=== PATIENT | male | born 1970 | race Caucasian/White ===

== ENCOUNTER 2023-01-18 10:10 | Inpatient (IN) | payer MEDICAID ==
[~2023-01-18] VITALS: Ht 167.6 cm; Wt 70.3 kg
[2023-01-18] MEDS ORDERED: IV NS 0.9% 1,000 ML BAG IV ONE (10:30)
[2023-01-18 10:51] LABS: BASOPHILS % (AUTO) 0.3 % (0.0-2.0); HEMATOCRIT 24 % (39-51); HEMOGLOBIN 7.5 g/dL (13.5-17.5); LYMPHOCYTES # (AUTO) 0.1 K/uL (0.8-4.8); LYMPHOCYTES % (AUTO) 1.2 % (20.0-44.0); MEAN CORPUSCULAR HGB CONC 32 g/dl (31.0-36.0); MEAN CORPUSCULAR VOLUME 91 fL (80-96); MONOCYTES # (AUTO) 0.2 K/uL (0.1-1.30); MONOCYTES % (AUTO) 2.7 % (2.0-12.0); NEUTROPHILS # (AUTO) 7.7 K/uL (1.8-8.9); NEUTROPHILS % (AUTO) 95.8 % (43.0-81.0); PLATELET COUNT (AUTO) 153 K/uL (150-450)
--- NOTE | 2023-01-18 10:53 | NUR ---
BIBA FOUND ON THE FLOOR BY FAMILY WITHOUT CLOTHES , ALTERED . +HISTORY OF ALCOHOLIM PER FAMILY
--- NOTE | 2023-01-18 10:54 | NUR ---
LAB AT BEDSIDE
[2023-01-18] MEDS ORDERED: LORAZEPAM INJ 2 MG/ML VIAL ONE (10:58)
[2023-01-18] MEDS ORDERED: LORAZEPAM INJ 2 MG/ML VIAL IV ONE (11:00)
[2023-01-18 11:01] LABS: CALCIUM, SERUM 8.8 mg/dL (8.5-10.1); CARBON DIOXIDE 21 mmol/L (21-32); CHLORIDE 90 mmol/L (98-107); CREATININE 1.2 mg/dL (0.6-1.3); GLUCOSE 96 mg/dL (74-106); POTASSIUM 3.8 mmol/L (3.5-5.1); SODIUM SERUM 126 mmol/L (136-145); UREA NITROGEN, BLOOD 31 mg/dL (7-18)
[2023-01-18 11:08] LABS: ALANINE AMINOTRANSFERASE 36 U/L (12-78); ALBUMIN 3.4 g/dL (3.4-5.0); ALKALINE PHOSPHATASE 132 U/L (46-116); ASPARTATE AMINOTRANSFERASE 101 U/L (15-37); BILIRUBIN,DIRECT 0.3 mg/dL (0.0-0.2); BILIRUBIN,TOTAL 0.9 mg/dL (0.2-1.0); TOTAL PROTEIN, SERUM 7.1 g/dL (6.4-8.2)
[2023-01-18 11:11] LABS: ALCOHOL, BLOOD < 3 mg/dL (0-0); LIPASE 1747 U/L (73-393)
[2023-01-18 11:15] LABS: THYROID STIMULATING HORMONE 1.291 uIU/mL (0.358-3.74)
--- NOTE | 2023-01-18 11:42 | NUR ---
TAKEN TO CT
[2023-01-18 11:49] LABS: MAGNESIUM 2.8 mg/dL (1.8-2.4)
--- NOTE | 2023-01-18 11:53 | NUR ---
SWAB FOR COVID19 SENT TO LAB
--- NOTE | 2023-01-18 16:13 | NUR ---
GOT BED 324-1 ADMITTING INFORMED CASSIUS GALLARDO.
[2023-01-18] MEDS ORDERED: MAGNESIUM HYDROXIDE 30 ML UDC PO PRN (16:30)
[2023-01-18] MEDS ORDERED: IV NS 0.9% 1,000 ML IV PRN (16:30)
[2023-01-18] MEDS ORDERED: ACETAMINOPHEN 325 MG TABLET PO PRN (16:30)
[2023-01-18] MEDS ORDERED: Z GUARD REMEDY 4 OZ OINT TP PRN (16:30)
[2023-01-18] MEDS ORDERED: MAG HYDROX/AL HYDROX/SIMETH 30 ML UDC PO PRN (16:30)
[2023-01-18] MEDS ORDERED: ZOLPIDEM TARTRATE 5 MG TABLET PO PRN (16:30)
[2023-01-18] MEDS ORDERED: ONDANSETRON HCL/PF 4 MG/2 ML VIAL IVP PRN (16:30)
--- NOTE | 2023-01-18 16:56 | NUR ---
REPORT GIVEN TO GREG HAMMONDS ROOM 324-1 FOR JOSE
[2023-01-18] MEDS: CHLORDIAZEPOXIDE HCL 25 MG CAPSULE PO SCH (17:00)
--- NOTE | 2023-01-18 17:15 | NUR ---
MS ASSOCIATE PROFESSOR OF BIOSTATISTICS NOTES: PT RECEIVED REPORT FROM CASSIUS MEYERS VIA PHONE. PT ARRIVED AT UNIT VIA GURNEY, TRANSFERRED TO BED WITH 2 PERSON ASSIST, UNABLE TO AMBULATE. VITAL WNL, BP= 146/102, HR = 62, O2= 99% ON RA. PT IS ASLEEP, EASILY ROUSED, A/OX1, ALERT TO NAME ONLY. ORIENTED PT TO ROOM AND STAFF. PT PLACED ON TELE MONITOR, CURRENT READING SR, HR= 63. IV ACCESS AT L HAND #18, PATENT/INTACT. BODY CHECK DONE, SKIN ISSUES NOTED AT R THIGH, L KNEE AND BOTH FEET/TOES, DOCUMENTED, PHOTOS TAKEN, ATTACHED TO CHART, WOUND CONSULT PLACED. ALERTED ADMITTING FLIGHT CONTROL MANAGER ABOUT R THIGH SWELLING, XRAY AND VENOUS DOPPLER ORDERED. SAFETY MEASURES IN PLACE, CALL LIGHT, TABLE WITHIN EASY REACH. WILL CONT WITH PLAN OF CARE. Addendum: 01/18/23 at 1940 by KAREN MORRIS RN DIRECTOR EPIDEMIOLOGYASSOCIATE PROFESSOR OF BIOSTATISTICS NOTES
--- NOTE | 2023-01-18 18:30 | NUR ---
RN NOTES; LIBRIUM NON ADMIN, PT IS NPO, PT IS REFUSING TO OPEN MOUTH, MADE MD AWARE TO POSSIBLY CHANGE TO ANOTHER MEDICATION TO IV ROUTE
[2023-01-18] MEDS: Thiamine 100 MG in IV D5W 50 ML IV SCH (19:22)
--- NOTE | 2023-01-18 19:37 | NUR ---
SAFETY INVESTIGATOR CLOSING NOTES: PT IS ASLEEP, EASILY ROUSED, A/OX1, ALERT TO NAME ONLY. ON RA WITH NO S/S OF SOB AND ACUTE DISTRESS. PT ON TELE MONITOR, CURRENT READING SR, HR= 63. IV ACCESS AT L HAND #18, RUNNING NS @ 150ML/HR. KEPT PT CLEAN, DRY AND COMFORTABLE, MEDS GIVEN. SAFETY MEASURES IN PLACE, CALL LIGHT, TABLE WITHIN EASY REACH, ENDORSED TO PM SHIFT.
--- NOTE | 2023-01-18 19:38 | NUR ---
IT SOLUTIONS ARCHITECT OPENING NOTES - RECEIVED PATIENT IN BED. A/O X1, CONFUSED. BREATHING EVEN AND NON-LABORED ON ROOM AIR. WHOLE BODY IS SHAKING, COLD TO TOUCH. DENIES PAIN AT THIS TIME. ON TELE MONITOR READING SINUS RHYTHM AT 69 BPM. HAS LEFT WRIST IV ACCESS #18G WITH NS RUNNING AT 150 ML/HR. NO S/S OF INFILTRATION NOTED. SAFETY PRECAUTIONS IN PLACE: BED LOCKED AND IN LOW POSITION, SIDE RAILS UP X3, CALL LIGHT WITHIN REACH. WILL CONTINUE PLAN OF CARE.
[2023-01-18 20:06] VITALS: BP 118/77
[2023-01-18] MEDS: LORAZEPAM INJ 2 MG/ML VIAL IV PRN (21:12)
--- NOTE | 2023-01-18 21:19 | NUR ---
ADMINISTERED PRN ATIVAN 0.5MG D/T WITHDRAWAL SYMPTOMS. WILL CONTINUE TO MONITOR.
[2023-01-19] VITALS (11 sets, daily range): BP systolic 94–147; BP diastolic 43–111
--- NOTE | 2023-01-19 00:17 | NUR ---
RN NOTES- START BT PATIENT STARTED 2ND BAG OF PRBC. V/S TAKEN AND RECORDED. BLOOD COMPONENTS CHECKED AND VERIFIED. WILL CONTINUE TO MONITOR PATIENT.
[2023-01-19] MEDS ORDERED: DEXTROSE 50%-WATER 50 ML DISP.SYRIN ONE (00:27)
--- NOTE | 2023-01-19 00:32 | NUR ---
CASSIUS NOTES- BT PATIENT HAS NO ADVERSE OR ALLERGIC REACTION 15 MINUTES AFTER STARTING BT. V/S STABLE, TAKEN AND RECORDED. WILL CONTINUE TO MONITOR PATIENT. Addendum: 01/20/23 at 0615 by VIVIENNE CHU RN DATE IS 01/20/23
--- NOTE | 2023-01-19 00:47 | NUR ---
CASSIUS NOTES- BT PATIENT HAS NO ADVERSE OR ALLERGIC REACTION 15 MINUTES AFTER STARTING BT. V/S STABLE, TAKEN AND RECORDED. Addendum: 01/20/23 at 0615 by VIVIENNE CHU RN DATE IS 01/20/23
--- NOTE | 2023-01-19 01:06 | NUR ---
BS 49 AND 55. ADMINISTERED D50, NOTIFIED HOSPITALIST SAÚL JENSEN, AWAITING RESPONSE. RECHECKED BS 165. PATIENT ASLEEP, LESS TREMORS NOTED. Addendum: 01/19/23 at 0158 by April CLARISSE HAMMONDS MD ORDERED CHANGE IVF TO D5NS AND MARZENA WEINER FOR HYPOTHERMIA. NOTED AND CARRIED OUT.
--- NOTE | 2023-01-19 01:17 | NUR ---
CASSIUS NOTES- BT PATIENT HAS NO ADVERSE OR ALLERGIC REACTION 30 MINUTES AFTER STARTING BT. V/S STABLE, TAKEN AND RECORDED. WILL CONTINUE TO MONITOR PATIENT. Addendum: 01/20/23 at 0615 by VIVIENNE CHU RN DATE IS 01/20/23
[2023-01-19] MEDS ORDERED: DEXTROSE 50%-WATER 50 ML DISP.SYRIN IVP ONE (02:00)
--- NOTE | 2023-01-19 02:17 | NUR ---
CASSIUS NOTES- BT PATIENT HAS NO ADVERSE OR ALLERGIC REACTION 1 HOUR AFTER STARTING BT. V/S STABLE, TAKEN AND RECORDED. Addendum: 01/20/23 at 0615 by VIVIENNE CHU RN DATE IS 01/20/23
[2023-01-19] MEDS: IV D5/ 0.9% NACL 1,000 ML IV PRN ×2 (02:26→10:35)
[2023-01-19] MEDS: LORAZEPAM INJ 2 MG/ML VIAL IV PRN (03:40)
--- NOTE | 2023-01-19 03:40 | NUR ---
EKG ORDERED BUT PATIENT STILL HAS GENERALIZED TREMOR. ADMINISTERED PRN ATIVAN 1MG AND NOTIFIED RT. Addendum: 01/19/23 at 0420 by April CLARISSE RN PER RT, PATIENT IS UNCOOPERATIVE AND KEPT TRYING TO REMOVE THE LEADS. ALSO, PATIENT STILL HAS TREMORS. UNABLE TO TAKE EKG AT THIS TIME.
--- NOTE | 2023-01-19 04:30 | NUR ---
THIAMINE 100 MG IN IV D5W 50 ML WAS HELD DUE TO PRIORITIZING BLOOD TRANSFUSION. PHARMACY WAS CONSULTED. PER PHARMACY, IT SHOULD BE GIVEN AFTER ALL BLOOD TRANSFUSIONS ARE DONE.
--- NOTE | 2023-01-19 04:31 | NUR ---
RT NOTE UNABLE TO PERFORM EKG. PATIENT NOT COOPERATING AND VERY SHAKY. RN MARGUERITE AWARE.
[2023-01-19 06:08] LABS: ALBUMIN 2.7 g/dL (3.4-5.0); BILIRUBIN,TOTAL 0.8 mg/dL (0.2-1.0); CALCIUM, SERUM 7.4 mg/dL (8.5-10.1); CREATININE 0.9 mg/dL (0.6-1.3); PHOSPHORUS 4.8 mg/dL (2.5-4.9); POTASSIUM 4.9 mmol/L (3.5-5.1); TOTAL PROTEIN, SERUM 5.7 g/dL (6.4-8.2)
--- NOTE | 2023-01-19 06:48 | NUR ---
LVN LPN CLOSING NOTES - PATIENT SLEEPING, EASY TO AROUSE. STILL NOT RESPONDING TO QUESTIONS. NO SOB OR NOTED, TOLERATING ROOM AIR WELL. GENERALIZED TREMORS NOTED. AFEBRILE. ON TELE MONITOR READING SINUS RHYTHM AT 99 BPM. HAS LEFT WRIST IV ACCESS #18G WITH D5NS RUNNING AT 150 ML/HR. INTACT, PATENT AND FLUSHING. ALL DUE MEDS GIVEN AND NEEDS ATTENDED. KEPT ON NPO. SAFETY PRECAUTIONS MAINTAINED. WILL ENDORSE TO NEXT SHIFT FOR JOSE.
--- NOTE | 2023-01-19 07:20 | NUR ---
CHEST PAINTING LEADER OPENING NOTES PATIENT SLEEPING, EASY TO AROUSE. YI SPEAKING, SECTION WEAVER TIMBER TREATMENT PLANT OPERATOR, A/OX1, CONFUSED, GENERALLY NOT RESPONDING TO QUESTIONS. NO SOB OR DISTRESS NOTED, TOLERATING ROOM AIR WELL. WITH GENERALIZED TREMORS NOTED. AFEBRILE. ON TELE MONITOR READING SINUS RHYTHM AT 99 BPM. HAS LEFT WRIST IV ACCESS #18G WITH D5NS RUNNING AT 150 ML/HR. INTACT, PATENT AND FLUSHING. PATIENT KEPT ON NPO. SAFETY PRECAUTIONS MAINTAINED. WILL CONTINUE TO MONITOR THE PATIENT.
[2023-01-19] MEDS ORDERED: PANTOPRAZOLE 40 MG VIAL IV SCH (09:00)
[2023-01-19] MEDS: CHLORDIAZEPOXIDE HCL 25 MG CAPSULE PO SCH ×2 (09:06→16:47)
[2023-01-19 09:12] LABS: BASOPHILS % (AUTO) 0.1 % (0.0-2.0); LYMPHOCYTES # (AUTO) 0.2 K/uL (0.8-4.8); MEAN CORPUSCULAR HGB CONC 32 g/dl (31.0-36.0); MEAN CORPUSCULAR VOLUME 90 fL (80-96); MONOCYTES # (AUTO) 0.3 K/uL (0.1-1.30); MONOCYTES % (AUTO) 6.4 % (2.0-12.0); NEUTROPHILS # (AUTO) 4.8 K/uL (1.8-8.9); NEUTROPHILS % (AUTO) 90.5 % (43.0-81.0); PLATELET COUNT (AUTO) 100 K/uL (150-450); RED BLOOD CELL COUNT(AUTO) 2.12 MIL/uL (4.5-6.0); WHITE BLOOD COUNT (AUTO) 5.4 K/uL (4.3-11.0)
[2023-01-19 09:17] LABS: HEMOGLOBIN 6.1 g/dL (13.5-17.5)
[2023-01-19 09:18] LABS: HEMATOCRIT 19 % (39-51)
--- NOTE | 2023-01-19 10:01 | NUR ---
WOUND CARE CONSULT: PT PRESENTS WITH SOME DRY ABRASIONS TO LOWER EXTREMITIES AND RED, SWOLLEN AREA TO RT HIP/THIGH PRESENT ON ADMISSION. DEFER TO PMD FOR RT HIP/THIGH AREA. DISCUSSED SKIN PROTECTION WITH NURSING STAFF. MD IN AGREEMENT WITH PLAN OF CARE.
--- NOTE | 2023-01-19 10:26 | NUR ---
SW Consult: SW consult requested for patient substance abuse. Patient was asleep and was not cooperative with this board writer. SW attempted to have a conversation with the pt and pt appeared to be disorganized and confused. Pt was unable to give any appropriate information. SW was unable to provide resources to pt or gather any historical information.
[2023-01-19] MEDS: HYDROMORPHONE 1 MG/1 ML DISP.SYRIN IV PRN (12:12)
--- NOTE | 2023-01-19 14:52 | NUR ---
A condom type chu was put in placed. No urine sample yet at this time
--- NOTE | 2023-01-19 17:28 | NUR ---
RN NOTES BLOOD TRANSFUSION OF PRBC STARTED AT 1727 AT 60 ML/HR VIA IV ACCESS ON LEFT WRIST 18G. PRE-BLOOD TRANSFUSION V/S TAKEN AND RECORDED. WILL MONITOR FOR ANY ALLERGIC OR ADVERSE REACTIONS.
--- NOTE | 2023-01-19 17:44 | NUR ---
RN NOTES NO ALLERGIC OR ADVERSE REACTIONS NOTED AFTER 15 MINUTES OF INITIATING BLOOD TRANSFUSION. V/S TAKEN AND RECORDED. WILL CONTINUE TO MONITOR.
--- NOTE | 2023-01-19 18:01 | NUR ---
RIGHT UPPER ARM IV GAUGE 20 WAS ESTABLISHED AN ALTERNATIVE IV ACCESS. PATIENT WAS CONFUSED AND TRIED TO PULL THE ONGOING BLOOD TRANSFUSION. SOFT RESTRAINT WAS ALSO TEMPORARILY PUT IN PLACED WHILE TRANSFUSING BLOOD.
[2023-01-19 18:26] LABS: HEMOGLOBIN 6.3 g/dL (13.5-17.5)
--- NOTE | 2023-01-19 19:24 | NUR ---
ASSOCIATE ATTORNEY CLOSING NOTES - PATIENT SLEEPING, EASY TO AROUSE. STILL NOT RESPONDING TO QUESTIONS. PATIENT'S RELATIVES IN THE ROOM TRANSLATING DUE TO PATIENT SPEAK ONLY GABONESE. NO SOB OR NOTED, TOLERATING ROOM AIR WELL. GENERALIZED TREMORS NOTED. AFEBRILE. ON TELE MONITOR READING SINUS RHYTHM AT 97 BPM. HAS LEFT WRIST IV ACCESS #18G WITH D5NS PUT ON HOLD AND TO RESUME AFTER BLOOD TRANSFUSION IS DONE AT 150 ML/HR. INTACT, PATENT AND FLUSHING. 2 UNITS OF PRBC WAS ORDERED. ONE BAG IS CURRENTLY TRANSFUSING. FINAL BAG NEEDED TO BE PICKED UP (ENDORSED TO PM NURSE). ADDITIONAL IV ACCESS WAS ESTABLISHED NOTED EARLIER. ALL DUE MEDS GIVEN AND NEEDS ATTENDED. PATIENT KEPT ON NPO. SAFETY PRECAUTIONS MAINTAINED. WILL ENDORSE TO NEXT SHIFT FOR JOSE.
--- NOTE | 2023-01-19 19:35 | NUR ---
SET OFF PRESS OPERATOR OPENING NOTES RECEIVED PATIENT IN BED SLEEPING, CURRENTLY ON BT WITH 1 PRBC. NO ADVERSE REACTION OR ALLERGIC REACTION NOTED. ON 2L OXYGEN VIA NC, BREATHING EVEN AND UNLABORED. A/O X 1, CONFUSED. NO S/S OF PAIN NOTED AT THIS TIME. IV ACCESS L WRIST #18G, ON SALINE LOCK. PATIENT WITH EXTERNAL RELAY ASSEMBLER WITH CURRENT READING OF SR @ 99, NO CARDIAC DISTRESS NOTED. FALL AND SAFETY PRECAUSTINS GIVEN WITH BED ON LOWEST AND LOCK POSITION. BED ALARM ON. SIDE RAILS UP X 2. CALL LIGHT WITHIN REACH. WILL CONTINUE WITH THE PLAN OF CARE.
--- NOTE | 2023-01-19 21:07 | NUR ---
RN NOTES- BT DONE DONE WITH THE 1 PRBC. V/S STABLE, TAKEN AND RECORDED. NO ALLERGIC OR ADVERSE REACTION NOTED. WILL CONTINUE TO MONITOR PATIENT.
[2023-01-19] MEDS: Thiamine 100 MG in IV D5W 50 ML IV SCH (21:26)
[2023-01-19] MEDS: PANTOPRAZOLE 40 MG VIAL IV SCH (21:29)
[2023-01-19] MEDS: CEFAZOLIN 1 GM in IV D5W 50 ML IV SCH (21:50)
[2023-01-20] VITALS (10 sets, daily range): BP systolic 98–145; BP diastolic 50–85
[2023-01-20 00:19] LABS: BAND % (MANUAL) 3 % (0.0-5.0); BASOPHILS % (MANUAL) 0 % (0.0-2.0); EOSINOPHILS % (MANUAL) 0 % (0-4); LYMPHOCYTES % (MANUAL) 4 % (16-48); MONOCYTES % (MANUAL) 7 % (0-11.0); NEUTROPHILS % (MANUAL) 86 (42-76)
--- NOTE | 2023-01-20 03:24 | NUR ---
RN NOTES- BT DONE DONE WITH 2ND BAG OF 1 PRBC. V/S STABLE, TAKEN AND RECORDED. NO ALLERGIC OR ADVERSE REACTION NOTED. WILL CONTINUE TO MONITOR PATIENT.
[2023-01-20] MEDS: LORAZEPAM INJ 2 MG/ML VIAL IV PRN (04:27)
--- NOTE | 2023-01-20 04:27 | NUR ---
RN NOTES- ATIVAN PATIENT GIVEN ATIVAN 1MG PRN. PATIENT IS RESTLESS AND TRYING TO PULL OUT TUBES AND IV LINES. WILL CONTINUE TO MONITOR PATIENT.
[2023-01-20] MEDS: CEFAZOLIN 1 GM in IV D5W 50 ML IV SCH ×3 (05:27→20:43)
[2023-01-20] MEDS: IV D5/ 0.9% NACL 1,000 ML IV PRN ×3 (05:34→21:36)
[2023-01-20 06:33] LABS: BASOPHILS % (AUTO) 0.1 % (0.0-2.0); EOSINOPHILS % (AUTO) 0.4 % (0.0-6.0); HEMATOCRIT 25 % (39-51); HEMOGLOBIN 8.5 g/dL (13.5-17.5); LYMPHOCYTES # (AUTO) 0.4 K/uL (0.8-4.8); LYMPHOCYTES % (AUTO) 5.2 % (20.0-44.0); MEAN CORPUSCULAR HGB CONC 33 g/dl (31.0-36.0); MEAN CORPUSCULAR VOLUME 88 fL (80-96); MONOCYTES # (AUTO) 0.5 K/uL (0.1-1.30); NEUTROPHILS # (AUTO) 6.7 K/uL (1.8-8.9); NEUTROPHILS % (AUTO) 88.3 % (43.0-81.0); PLATELET COUNT (AUTO) 82 K/uL (150-450); RED BLOOD CELL COUNT(AUTO) 2.89 MIL/uL (4.5-6.0); WHITE BLOOD COUNT (AUTO) 7.5 K/uL (4.3-11.0)
[2023-01-20 06:41] LABS: ALBUMIN 2.6 g/dL (3.4-5.0); BILIRUBIN,TOTAL 1.3 mg/dL (0.2-1.0); CALCIUM, SERUM 7.8 mg/dL (8.5-10.1); CREATININE 0.8 mg/dL (0.6-1.3)
--- NOTE | 2023-01-20 07:46 | NUR ---
MACHINE DRILLER CLOSING NOTES PATIENT IN BED SLEEPING WITH BILATERAL SOFT RESTRAINTS. A/O X 1, CONFUSED. ON 2L OXYGEN VIA NC FOR COMFORT, BREATHING EVEN AND UNLABORED. NO S/S OF PAIN NOTED AT THIS TIME. IV ACCESS RAC #18G RUNNING D5 NS @ 150ML/HR. FINISHED 2 PRBC, NO ADVERSE AND ALLERGIC REACTION NOTED. ON NPO, ALL DUE IV MEDICATIONS GIVEN. PATIENT WITH EXTERNAL PSYCHOLOGICAL SCIENCE PROFESSOR WITH CURRENT READING OF SR @ 90, NO CARDIAC DISTRESS NOTED. FALL AND SAFETY PRECAUTIONS MAINTAINED WITH BED ON LOWEST AND LOCK POSITION. BED ALARM ON. SIDE RAILS UP X 2. CALL LIGHT WITHIN REACH. WILL ENDORSE TO THE NEXT SHIFT.
--- NOTE | 2023-01-20 07:50 | NUR ---
RN OPENING NOTE RECEIVED PATIENT IN BED, ASLEEP, EASILY AROUSED. NO SIGNS OF ACUTE DISTRESS NOTED. ON O2 INHALATION @2LPM VIA N/C, NO SOB NOTED, BREATHING EVEN AND UNLABORED. NOTED WITH IV ACCESS ON RIGHT AC #20G, INTACT AND PATENT WITH D5NS @150 ML/HR RUNNING. ON TELE MONITOR SHOWING SR/ST. BILATERAL SOFT WRIST RESTRAINTS IN PLACE FOR SAFETY. F/C INTACT DRAINING CLEAR JO ANN URINE VIA GRAVITY. SAFETY MEASURE IN PLACE. BED IN LOW AND LOCKED POSITION, SIDE RAILS UP X2, CALL LIGHT PLACED WITHIN EASY REACH, WILL CONTINUE TO MONITOR PATIENT.
[2023-01-20] MEDS: CHLORDIAZEPOXIDE HCL 25 MG CAPSULE PO SCH ×2 (08:54→16:27)
[2023-01-20] MEDS: PANTOPRAZOLE 40 MG VIAL IV SCH ×2 (08:55→20:46)
[2023-01-20 12:10] LABS: BAND % (MANUAL) 6 % (0.0-5.0); BASOPHILS % (MANUAL) 0 % (0.0-2.0); EOSINOPHILS % (MANUAL) 2 % (0-4); LYMPHOCYTES % (MANUAL) 7 % (16-48); MONOCYTES % (MANUAL) 5 % (0-11.0); NEUTROPHILS % (MANUAL) 80 (42-76)
[2023-01-20] MEDS: THIAMINE HCL 100 MG TABLET PO SCH (12:17)
[2023-01-20] MEDS: HYDROMORPHONE 1 MG/1 ML DISP.SYRIN IV PRN (16:57)
[2023-01-20 17:15] LABS: HEMOGLOBIN 8.1 g/dL (13.5-17.5)
--- NOTE | 2023-01-20 18:48 | NUR ---
RN CLOSING NOTE PATIENT IN BED, ASLEEP, EASILY AROUSED. NO SIGNS OF ACUTE DISTRESS NOTED. REMAINS ON O2 INHALATION @2LPM VIA N/C, NO SOB NOTED, BREATHING EVEN AND UNLABORED. WITH IV ACCESS ON RIGHT AC #20G, INTACT AND PATENT WITH D5NS @150 ML/HR RUNNING. PATIENT DOWNGRADED TO MS. BILATERAL SOFT WRIST RESTRAINTS IN PLACE FOR SAFETY.STILL NOTED WITH EPISODES OF RESTLESSNESS, REDIRECTED NEEDED. F/C INTACT DRAINING CLEAR JO ANN URINE VIA GRAVITY. SAFETY MEASURE MAINTAINED. BED IN LOW AND LOCKED POSITION, SIDE RAILS UP X2, CALL LIGHT PLACED WITHIN EASY REACH. WILL ENDORSE TO NEXT SHIFT FOR CONTINUITY OF CARE.
--- NOTE | 2023-01-20 19:30 | NUR ---
MS RN OPENING NOTE RECEIVED PATIENT FROM AM NURSE; PATIENT IN BED, ASLEEP, EASILY AROUSED; ON O2 INHALATION @ 2LPM VIA NASAL CANNULA, NO SOB NOTED, BREATHING EVENLY AND UNLABORED, WITH NO SIGNS OF RESPIRATORY DISTRESS NOTED; WITH IV ACCESS ON RAC G #20, INTACT AND PATENT WITH D5NS INFUSING @ 150 ML/HR; BILATERAL SOFT WRIST RESTRAINTS IN PLACE FOR SAFETY; WITH GUZMAN CATHETER IN PLACE, INTACT DRAINING CLEAR JO ANN URINE VIA GRAVITY; SAFETY MEASURES IMPLEMENTED, BED IN LOW AND LOCKED POSITION, SIDE RAILS UP X2, CALL LIGHT PLACED WITHIN EASY REACH, WILL CONTINUE TO MONITOR PATIENT
[2023-01-21] MEDS: CEFAZOLIN 1 GM in IV D5W 50 ML IV SCH ×3 (04:43→20:08)
[2023-01-21] MEDS: IV D5/ 0.9% NACL 1,000 ML IV PRN ×3 (04:44→20:08)
[2023-01-21 06:36] LABS: BASOPHILS % (AUTO) 0.3 % (0.0-2.0); EOSINOPHILS % (AUTO) 0.4 % (0.0-6.0); HEMATOCRIT 24 % (39-51); LYMPHOCYTES # (AUTO) 0.4 K/uL (0.8-4.8); LYMPHOCYTES % (AUTO) 5.4 % (20.0-44.0); MEAN CORPUSCULAR HGB CONC 33 g/dl (31.0-36.0); MEAN CORPUSCULAR VOLUME 87 fL (80-96); MONOCYTES # (AUTO) 0.6 K/uL (0.1-1.30); MONOCYTES % (AUTO) 8.5 % (2.0-12.0); NEUTROPHILS # (AUTO) 5.9 K/uL (1.8-8.9); NEUTROPHILS % (AUTO) 85.4 % (43.0-81.0); PLATELET COUNT (AUTO) 76 K/uL (150-450); RED BLOOD CELL COUNT(AUTO) 2.78 MIL/uL (4.5-6.0); WHITE BLOOD COUNT (AUTO) 6.9 K/uL (4.3-11.0)
--- NOTE | 2023-01-21 07:00 | NUR ---
MS RN CLOSING NOTE PATIENT IN BED, ASLEEP, EASILY AROUSED; STABLE ON ROOM AIR, NO SOB NOTED, BREATHING EVENLY AND UNLABORED, WITH NO SIGNS OF RESPIRATORY DISTRESS NOTED; WITH IV ACCESS ON RAC G #20, INTACT AND PATENT WITH D5NS INFUSING @ 150 ML/HR; BILATERAL SOFT WRIST RESTRAINTS IN PLACE FOR SAFETY; WITH GUZMAN CATHETER IN PLACE, INTACT DRAINING TO CLEAR JO ANN URINE VIA GRAVITY APPROXIMATELY 800ML; ADMINISTERED MEDICATIONS PRESCRIBED; PATIENT'S NEEDS ATTENDED; SAFETY MEASURES IMPLEMENTED, BED IN LOW AND LOCKED POSITION, SIDE RAILS UP X2, CALL LIGHT PLACED WITHIN EASY REACH; WILL ENDORSE TO AM NURSE FOR JOSE.
[2023-01-21 07:01] LABS: CALCIUM, SERUM 7.8 mg/dL (8.5-10.1); CREATININE 0.7 mg/dL (0.6-1.3); POTASSIUM 3.3 mmol/L (3.5-5.1)
[2023-01-21 08:00] VITALS: BP 113/70
--- NOTE | 2023-01-21 08:19 | NUR ---
RN OPENING NOTE RECEIVED PATIENT IN BED AO x 1, CONFUSED, ABLE TO RESPONDS PHYSICAL STIMULI. RESPIRATORY EVEN AND UNLABORED IN ROOM AIR. IN NO ACUTE DISTRESS OBSERVED. SKIN IS WARM TO TOUCH, KEEP CLEAN/DRY. KEPT ELEVATED HOB FOR ASPIRATION PRECAUTION/ENSURE AIRWAY, ALSO LOWEST BED POSITIONED. BED ALARM IS ON AT ALL THE TIME FOR SAFETY. CALL LIGHT WITHIN REACH, WILL CONTINUE TO MONITOR.
[2023-01-21] MEDS: PANTOPRAZOLE 40 MG VIAL IV SCH ×2 (09:12→20:09)
[2023-01-21] MEDS: CHLORDIAZEPOXIDE HCL 25 MG CAPSULE PO SCH ×2 (09:13→17:27)
[2023-01-21] MEDS: THIAMINE HCL 100 MG TABLET PO SCH (09:13)
[2023-01-21] MEDS ORDERED: POTASSIUM CHLORIDE 20 MEQ POWDER PACKET PO ONE (11:00)
[2023-01-21] MEDS ORDERED: POTASSIUM CHLORIDE 20 MEQ POWDER PACKET NG SCH (11:00)
[2023-01-21] MEDS ORDERED: POTASSIUM CHLORIDE 20 MEQ POWDER PACKET PO SCH (11:00)
[2023-01-21 16:00] VITALS: BP 113/74
[2023-01-21] MEDS ORDERED: PHYTONADIONE INJ 10 MG in IV D5W 50 ML SQ ONE (16:00)
[2023-01-21 17:30] LABS: HEMOGLOBIN 8.3 g/dL (13.5-17.5)
--- NOTE | 2023-01-21 18:00 | NUR ---
RN CLOSING NOTE PATIENT RESTING IN BED. IN NO ACUTE DISTRESS OBSERVED. RESPIRATORY EVEN AND UNLABORED IN ROOM AIR, NO SOB OR DESATURATION NOTED. SKIN IS WARM TO TOUCH KEEP CLEAN/DRY. KEPT ELEVATED HOB FOR ENSURE AIRWAY/ASPIRATION PRECAUTION, AND LOWEST BED POSITION. BED ALARM IS ON AT ALL THE TIME FOR SAFETY. CALL LIGHT WITHIN REACH, WILL ENDORSE MARITIME GUARD.
[2023-01-21 18:45] LABS: BAND % (MANUAL) 24 % (0.0-5.0); LYMPHOCYTES % (MANUAL) 5 % (16-48); MONOCYTES % (MANUAL) 7 % (0-11.0); NEUTROPHILS % (MANUAL) 64 (42-76)
--- NOTE | 2023-01-21 19:30 | NUR ---
MS RN OPENING NOTE RECEIVED PATIENT IN BED, WITH HOB ELEVATED, ALERT AND ORIENTED TO SELF WITH CONFUSION. AFEBRILE AND NOT IN ANY FORM OF ACUTE DISTRESS. BREATHING EVEN AND NON LABORED. WITH IV ACCESS ON SD 20G RUNNING WITH D5 NS AT 150ML/HR. WITH BILATERAL SOFT WRIST RESTRAINTS, NOTED WITH INTACT SKIN AND GOOD CIRCULATION. WITH INTACT GUZMAN CATHETER, DRAINING WELL WITH YELLOW URINE OUTPUT, NO HEMATURIA OR SEDIMENTS NOTED. SAFETY MEASURES IN PLACE. KEPT BED IN LOCKED AND IN LOW POSITION. SIDE RAILS UP X2. CALL LIGHT WITHIN EASY REACH.
[2023-01-21 20:00] VITALS: BP 113/77
[2023-01-22] MEDS: LORAZEPAM INJ 2 MG/ML VIAL IV PRN ×2 (00:22→10:16)
[2023-01-22] MEDS: IV D5/ 0.9% NACL 1,000 ML IV PRN ×2 (03:48→17:43)
[2023-01-22] MEDS: CEFAZOLIN 1 GM in IV D5W 50 ML IV SCH ×3 (04:08→20:06)
[2023-01-22 05:43] LABS: BASOPHILS % (AUTO) 0.2 % (0.0-2.0); EOSINOPHILS % (AUTO) 0.7 % (0.0-6.0); HEMATOCRIT 25 % (39-51); HEMOGLOBIN 8.3 g/dL (13.5-17.5); LYMPHOCYTES # (AUTO) 0.5 K/uL (0.8-4.8); LYMPHOCYTES % (AUTO) 7.4 % (20.0-44.0); MEAN CORPUSCULAR HGB CONC 34 g/dl (31.0-36.0); MEAN CORPUSCULAR VOLUME 87 fL (80-96); MONOCYTES # (AUTO) 0.8 K/uL (0.1-1.30); MONOCYTES % (AUTO) 12.1 % (2.0-12.0); NEUTROPHILS # (AUTO) 5.6 K/uL (1.8-8.9); NEUTROPHILS % (AUTO) 79.6 % (43.0-81.0); PLATELET COUNT (AUTO) 80 K/uL (150-450); RED BLOOD CELL COUNT(AUTO) 2.85 MIL/uL (4.5-6.0)
[2023-01-22 06:00] LABS: ALBUMIN 2.4 g/dL (3.4-5.0); BILIRUBIN,TOTAL 1.5 mg/dL (0.2-1.0); CREATININE 0.7 mg/dL (0.6-1.3)
--- NOTE | 2023-01-22 06:30 | NUR ---
MS RN CLOSING NOTE PATIENT IN BED, WITH HOB ELEVATED, SLEEPING INTERMITTENTLY. NOTED WITH CONFUSION. AFEBRILE AND NOT IN ANY FORM OF ACUTE DISTRESS. BREATHING EVEN AND NON LABORED. WITH IV ACCESS ON SD 20G RUNNING WITH D5 NS AT 150ML/HR. WITH BILATERAL SOFT WRIST RESTRAINTS, NOTED WITH INTACT SKIN AND GOOD CIRCULATION. WITH INTACT GUZMAN CATHETER, DRAINING WELL WITH YELLOW URINE OUTPUT, NO HEMATURIA OR SEDIMENTS NOTED. MEDICATED ORDERED. CONTINUOUS ON IV ATB, MONITORED FOR ANY ADVERSE REACTION. SAFETY MEASURES IN PLACE. KEPT BED IN LOCKED AND IN LOW POSITION. SIDE RAILS UP X2. CALL LIGHT WITHIN EASY REACH. ALL NURSING NEEDS ATTENDED. ENDORSED TO INCOMING SHIFT FOR CONTINUITY OF CARE.
--- NOTE | 2023-01-22 07:46 | NUR ---
MS RN OPENING NOTE Patient in bed, awake. A/O x 1, confused. On room air, breathing evenly and unlabored. No SOB or s/s of distress noted. IV access on RAC infusing D5NS @ 150 ml/hr. Bilateral soft wrist restraints noted. Glynn catheter in place draining to a yellow colored urine. Safety precautions in place: bed in low, locked position; siderails up x 2; call light within reach. Will continue to monitor.
[2023-01-22] MEDS: POTASSIUM CL. PREMIX PERIPHER. 50 ML IV SCH ×6 (08:24→14:53)
[2023-01-22] MEDS: THIAMINE HCL 100 MG TABLET PO SCH (08:25)
[2023-01-22] MEDS: PANTOPRAZOLE 40 MG VIAL IV SCH ×2 (08:25→20:06)
[2023-01-22] MEDS: CHLORDIAZEPOXIDE HCL 25 MG CAPSULE PO SCH ×2 (08:25→16:37)
[2023-01-22 08:53] LABS: THYROID STIMULATING HORMONE 3.145 uIU/mL (0.358-3.74)
[2023-01-22 09:03] LABS: MAGNESIUM 1.7 mg/dL (1.8-2.4)
--- NOTE | 2023-01-22 10:16 | NUR ---
RN NOTE Patient was very agitated and restless, kept pulling on his restraints and moving around his bed, trying to get up. PRN Ativan 1 mg IV given. Will continue to monitor.
[2023-01-22 12:43] LABS: BAND % (MANUAL) 26 % (0.0-5.0); BASOPHILS % (MANUAL) 0 % (0.0-2.0); EOSINOPHILS % (MANUAL) 1 % (0-4); LYMPHOCYTES % (MANUAL) 9 % (16-48); MONOCYTES % (MANUAL) 5 % (0-11.0); NEUTROPHILS % (MANUAL) 59 (42-76)
[2023-01-22] MEDS ORDERED: LORAZEPAM INJ 2 MG/ML VIAL IV PRN (15:30)
[2023-01-22 16:09] LABS: OCCULT BLOOD STOOL NEGATIVE (NEGATIVE)
[2023-01-22 17:01] LABS: HEMOGLOBIN 8.4 g/dL (13.5-17.5)
[2023-01-22 18:49] LABS: BILIRUBIN,URINE NEGATIVE (NEGATIVE); COLOR,URINE YELLOW (YELLOW); LEUKOCYTE ESTERASE ,URINE NEGATIVE (NEGATIVE); NITRITE, URINE NEGATIVE (NEGATIVE); PROTEIN,URINE TRACE mg/dl (NEGATIVE); UGLUCOSE NEGATIVE (NEGATIVE)
--- NOTE | 2023-01-22 18:53 | NUR ---
MS RN CLOSING NOTE Patient in bed, resting. A/O x 1, confused. Stable on room air, breathing evenly and unlabored. No SOB or s/s of distress noted. IV access on RAC infusing D5NS @ 70 ml/hr. Bilateral soft wrist restraints noted. Glynn catheter in place draining to an edyta colored urine with an output of 1300 cc. Patient kept clean and dry. Due meds given. Telephone consents for surgery tomorrow obtained from brother and placed in chart. Safety precautions in place: bed in low, locked position; siderails up x 2; call light within reach. Will endorse to night court magistrate nurse for JOSE.
--- NOTE | 2023-01-22 19:15 | NUR ---
MS RN OPENING NOTE PT IN BED RESTING. A/O X1, CONFUSED. ON RA WITH NO SOB OR S/S OF DISTRESS. IV ACCESS ON RAC INFUSING D5NS @ 70 ML/HR. BILATERAL SOFT WRIST RESTRAINTS NOTED. GUZMAN CATHETER WITH CLEAR YELLOW URINE NOTED. NPO AT MIDNIGHT FOR SURGERY TOMORROW AT 1100. SAFETY PRECAUTIONS IN PLACE: BED LOCKED AND IN LOW POSITION, SIDERAILS UP X3, BED ALARM ON, CALL LIGHT WITHIN REACH. WILL CONTINUE TO MONITOR AND ASSIST.
[2023-01-22 19:27] LABS: BACTERIA,URINE None seen /HPF (None Seen); RBC,URINE 51-80 /HPF (0-2); SQUAMOUS EPITHELIAL CELL,UR 0-2 /HPF (None Seen); WBC,URINE 0-2 /HPF (0-3)
[2023-01-22 20:00] VITALS: BP 117/78
[2023-01-22 20:14] VITALS: BP 117/73
[2023-01-23] VITALS (13 sets, daily range): BP systolic 94–123; BP diastolic 64–91
--- NOTE | 2023-01-23 00:19 | NUR ---
RN NOTES- START BT PATIENT STARTED ON 1 BAG OF PRBC. V/S TAKEN AND RECORDED. BLOOD COMPONENTS CHECKED AND VERIFIED. WILL CONTINUE TO MONITOR PATIENT.
--- NOTE | 2023-01-23 00:34 | NUR ---
RN NOTE PATIENT HAS NO ADVERSE OR ALLERGIC REACTION 15 MINUTES AFTER STARTING BT. V/S STABLE, TAKEN AND RECORDED. BODY TEMP TRENDING UP. WILL CONTINUE TO MONITOR PATIENT.
--- NOTE | 2023-01-23 00:49 | NUR ---
RN NOTE PATIENT HAS NO ADVERSE OR ALLERGIC REACTION 30 MINUTES AFTER STARTING BT. V/S STABLE, TAKEN AND RECORDED. BODY TEMP SAME LAST MEASUREMENT. WILL CONTINUE TO MONITOR PATIENT.
--- NOTE | 2023-01-23 01:19 | NUR ---
RN NOTE PATIENT HAS NO ADVERSE OR ALLERGIC REACTION 1 HR MINUTES AFTER STARTING BT. V/S STABLE, TAKEN AND RECORDED. BODY TEMP SAME LAST MEASUREMENT. WILL CONTINUE TO MONITOR PATIENT.
--- NOTE | 2023-01-23 02:43 | NUR ---
RN NOTE PATIENT FINISHED WITH 1 UNIT OF PRBC TRANSFUSION. NO ADVERSE OR ALLERGIC REACTION NOTED. V/S STABLE, TAKEN AND RECORDED. BODY TEMP STEADY THROUGHOUT TRANSFUSION. WILL CONTINUE TO MONITOR PATIENT.
[2023-01-23] MEDS: CEFAZOLIN 1 GM in IV D5W 50 ML IV SCH ×2 (04:16→20:16)
--- NOTE | 2023-01-23 05:08 | NUR ---
RN NOTE PT WITH SIGNS OF AGITATION. WINCING, MUMBLES, TRYING TO MOVE OUT OF BED. GIVEN PRESCRIBED ATIVAN. WILL CONTINUE TO MONITOR.
--- NOTE | 2023-01-23 06:51 | NUR ---
MS RN CLOSING NOTE PT IN BED RESTING. A/O X1, CONFUSED. STABLE ON RA WITH NO SOB OR S/S OF DISTRESS. IV ACCESS ON RAC INFUSING D5NS @ 70 ML/HR. BILATERAL SOFT WRIST RESTRAINTS STILL IN PLACE, CIRCULATION WNL. GUZMAN CATHETER WITH CLEAR YELLOW URINE NOTED, TOTAL OF 1000ML THROUGHOUT SHIFT. NPO SINCE MIDNIGHT FOR SURGERY TODAY AT 1100. 1 UNIT OF PRBC TRANSFUSION FINISHED LAST NIGHT AND TOLERATED WELL WITH NO REACTIONS NOTED. ALL CARE PROVIDED AND MEDS TOLERATED WELL. SAFETY PRECAUTIONS MAINTAINED: BED LOCKED AND IN LOW POSITION, SIDERAILS UP X3, BED ALARM ON, CALL LIGHT WITHIN REACH. WILL ENDORSE OJSE TO DAY SHIFT NURSE.
--- NOTE | 2023-01-23 07:30 | NUR ---
MS RN OPENING NOTES: RECEIVED PATIENT IN BED, ASLEEP EASILY AWAKEN WITH STIMULI. PT ALERT AND ORIENTED X 1 AND EPISODES OF CONFUSION. NO SOB OR CARDIAC DISTRESS NOTED. IV ACCESS ON RAC GAUGE #20 PATENT,INTACT AND INFUSING D5NS @ 70ML/HR. GUZMAN CATHETER NOTED DRAINING LIGHT YELLOW COLORED URINE VIA GRAVITY. MAINTAINED NPO SINCE MID NIGHT, SCHEDULED FOR SURGERY TODAY AM. SAFETY MEASURES MAINTAINED: BED LOCKED AND IN LOWEST POSITION, SIDE RAILS UP X 2, CALL LIGHT IN EASY REACH AND WILL MONITOR PT ACCORDINGLY.
[2023-01-23] MEDS: PANTOPRAZOLE 40 MG VIAL IV SCH (08:31)
[2023-01-23 08:52] LABS: ALBUMIN 2.2 g/dL (3.4-5.0); BILIRUBIN,TOTAL 1.7 mg/dL (0.2-1.0); CALCIUM, SERUM 8.1 mg/dL (8.5-10.1); CREATININE 0.7 mg/dL (0.6-1.3); MAGNESIUM 1.4 mg/dL (1.8-2.4); PHOSPHORUS 1.7 mg/dL (2.5-4.9); TOTAL PROTEIN, SERUM 5.8 g/dL (6.4-8.2)
[2023-01-23] MEDS: CHLORDIAZEPOXIDE HCL 25 MG CAPSULE PO SCH ×2 (09:00→16:11)
[2023-01-23] MEDS: THIAMINE HCL 100 MG TABLET PO SCH (09:00)
[2023-01-23 09:10] LABS: POTASSIUM 2.7 mmol/L (3.5-5.1)
--- NOTE | 2023-01-23 09:15 | NUR ---
RN NOTES: CLARA (LAB) RELAYED K LEVEL2.7, RELAYED TO DR VÍCTOR PROCTOR AND ORDERED KCL 60 MEQS IV, ORDERS NOTED AND CARRIED OUT.
[2023-01-23] MEDS: POTASSIUM CL. PREMIX PERIPHER. 50 ML IV SCH ×6 (09:38→16:10)
[2023-01-23 10:28] LABS: BASOPHILS % (AUTO) 0.1 % (0.0-2.0); EOSINOPHILS % (AUTO) 0.9 % (0.0-6.0); HEMATOCRIT 29 % (39-51); HEMOGLOBIN 9.6 g/dL (13.5-17.5); LYMPHOCYTES # (AUTO) 0.7 K/uL (0.8-4.8); LYMPHOCYTES % (AUTO) 9.4 % (20.0-44.0); MEAN CORPUSCULAR HGB CONC 33 g/dl (31.0-36.0); MEAN CORPUSCULAR VOLUME 88 fL (80-96); MONOCYTES % (AUTO) 13.2 % (2.0-12.0); NEUTROPHILS # (AUTO) 5.9 K/uL (1.8-8.9); NEUTROPHILS % (AUTO) 76.4 % (43.0-81.0); PLATELET COUNT (AUTO) 72 K/uL (150-450); WHITE BLOOD COUNT (AUTO) 7.7 K/uL (4.3-11.0)
[2023-01-23] MEDS ORDERED: ANESTHESIA TRAY IN PYXIS 1 EA TRAY MC ONE (10:28)
[2023-01-23] MEDS ORDERED: POLYMYXIN B SULFATE 500,000 UNITS ONE (10:29)
[2023-01-23] MEDS ORDERED: BUPIVACAINE 0.25% 75 MG/30 ML VIAL ONE (10:29)
--- NOTE | 2023-01-23 10:33 | NUR ---
RN NOTES:; PATIENT WAS PICKED UP BY RN PATTI AND OR TRANSPORTER VIA BED. PT AWAKE, A/O X1 CONFUSED. NO SOB OR CARDIAC DISTRESS NOTED. BILATERAL SOFT RESTRAINT NOTED, PT ABLE TO MOVE HANDS FREELY.
--- NOTE | 2023-01-23 10:43 | NUR ---
RN NOTES: CASSIUS PINO HANDED 2 BAGS OF POTASSIUM IV TO CASSIUS PANIAGUA.
[2023-01-23] MEDS ORDERED: FAMOTIDINE/PF INJ 20 MG/2 ML VIAL IV ONE (10:56)
[2023-01-23] MEDS ORDERED: ALBUMIN 5% 500 ML IV ONE (10:56)
[2023-01-23] MEDS ORDERED: FENTANYL PF 100MCG/2ML AMPUL ONE (10:56)
[2023-01-23] MEDS ORDERED: ROCURONIUM BROMIDE 50 MG/5 ML ONE (10:57)
[2023-01-23] MEDS ORDERED: TRANEXAMIC ACID 1,000 MG/10 ML VIAL ONE (11:01)
[2023-01-23] MEDS ORDERED: Magnesium 1 GM/2 ML VIAL ONE ×2 (11:10→11:11)
[2023-01-23 11:27] LABS: BAND % (MANUAL) 4 % (0.0-5.0); LYMPHOCYTES % (MANUAL) 9 % (16-48); METAMYELOCYTES % 1 % (0-0); MONOCYTES % (MANUAL) 6 % (0-11.0); MYELOCYTES % 1 % (0-0); NEUTROPHILS % (MANUAL) 79 (42-76)
[2023-01-23 14:02] LABS: HEMOGLOBIN 8.4 g/dL (13.5-17.5)
--- NOTE | 2023-01-23 14:20 | NUR ---
S/P RIGHT HIP ORIF MS RN NOTES: RECEIVED PT S/P RIGHT HIP ORIF BY DR JOE. ACCOMPANIED BY CASSIUS DE LA CRUZ VIA BED. PT IS ASLEEP EASILY AROUSED WITH VERBAL AND LIGHT PAIN STIMULI. MACANESE SPEAKING. NO SOB OR CARDIAC DISTRESS, ON ROOM AIR AND SATURATING 99%. VS WNL. PT NOTED WITH BILATERAL SOFT RESTRAINT. PT ABLE TO MOVE FREELY WITHOUT ANY PAIN. IV ACCESS ON LEFT HAND GAUGE 22 AND ON LEFT FOREARM GAUGE 20, BOTH IV ACCESS PATENT AND INTACT AND FLUSHING WELL. NOTED WITH SURGICAL INCISION WITH DRESSING ON RIGHT HIP NOTED WITH SMUDGE BLOOD DUE TO MELTED ICE. PT HAD 1 UNIT PRBC IN RECOVERY RUN 45MINS INITIATED BY COAT OPERATOR INSULATOR.ORDERS NOTED AND CARRIED OUT. REGULAR DIET ONCE FULLY AWAKE, OOB, DRESSING CHANGE PRN, PT WBAT RLE, MEDICATIONS FAXED TO PHARMACY PER ENDORSEMENT. REMOVE FC 1 DAY POST OP DUE TOMORROW. ORDERS NOTED AND CARRIED OUT.
[2023-01-23] MEDS ORDERED: BISACODYL SUPP (10 MG) 10 MG/SUPP.RECT SUPP.RECT RC PRN (14:30)
[2023-01-23] MEDS ORDERED: SENNOSIDES 8.6 MG TABLET PO PRN ×2 (14:30)
[2023-01-23] MEDS ORDERED: ACETAMINOPHEN 325 MG TABLET PO PRN (14:30)
[2023-01-23] MEDS ORDERED: DOCUSATE SODIUM 100 MG CAPSULE PO PRN (14:30)
[2023-01-23] MEDS ORDERED: K PHOS NEUTRAL 250 MG TABLET PO ONE (16:00)
[2023-01-23] MEDS: SOD FERRIC GLUC 125 MG in IV NS 0.9% 100 ML IV SCH (16:19)
[2023-01-23] MEDS: MORPHINE SULFATE INJ 4 MG/ML DISP.SYRIN IV PRN ×2 (16:28→22:49)
--- NOTE | 2023-01-23 16:43 | NUR ---
RN NOTES: PATIENT'S MEDICATIONS OVERLAPPED SO PT'S MEDS IS LATE. PATIENT KEPT MOVING, COMPLAINED PAIN 7/10 MORPHINE GIVEN, SURGICAL DRESSING ALMOST FALLING OFF- REINFORCED SURGICAL DRESSING.
[2023-01-23] MEDS: IV D5/ 0.9% NACL 1,000 ML IV PRN (18:29)
--- NOTE | 2023-01-23 18:55 | NUR ---
MS RN CLOSING NOTES: PT IN BED AWAKE, ALERT AND ORIENTED X1 BULGARIAN SPEAKING. NO SOB OR CARDIAC DISTRESS NOTED, ON ROOM AIR AND TOLERATING WELL. S/P RIGHT HIP ORIF WITH SURGICAL INCISION NO UNUSUAL DISCHARGE/BLEEDING NOTED, RIGHT HIPS SWOLLEN AND BRUISED. BILATERAL SOFT RESTRAINT NOTED, RELEASING THE RESTRAINT WHENEVER PATIENT IS CALMER OR SLEEPING. IV ACCESS ON LEFT FOREARM GAUGE 20 AND LEFT HAND GAUGE 20 PATENT,INTACT AND RUNNING D5NS @70ML/HR.GUZMAN CATHETER IN PLACE AND DRAINING CLEAR JO ANN COLORED URINE VIA GRAVITY. SAFETY MEASURES MAINTAINED: BED LOCKED AN IN LOWEST POSITION, SIDE RAILS UP X 2 CALL LIGHT IN EASY REACH FOR HELP. ENDORSED TO REGISTRATION OFFICER RN FOR CONTINUITY OF CARE.
--- NOTE | 2023-01-23 19:45 | NUR ---
MS RN NOTES RECEIVED ON BED SLEEPING,AROUSABLE TO VERBAL STIMULI,BREATHING REGULAR,NOT IN ANY FORM OF DISTRESS.S/P RIGHT HIP ORIF TODAY BY DR JOE,DRESSING INTACT AND DRY.GUZMAN CATH IN PLACE DRAINS YELLOWISH OUTPUT.PRESENT IVF D5NS AT 70ML/HR RATE INFUSING WELL ON LEFT HAND VIA IV PUMP,SITE PATENT.WILL CONTINUE TO MONITOR STATUS.CALL LIGHT IN REACH,NEEDS ANTICIPATED.
[2023-01-23] MEDS: PANTOPRAZOLE 40 MG TABLET.DR PO SCH (20:17)
--- NOTE | 2023-01-23 22:49 | NUR ---
MS RN NOTES RIGHT WRIST RESTRAINTS RELEASED THIS TIME.NOTED FACIAL GRIMACED,RESTLESS,MEDICATED WITH MORPHINE 4MG IV AD ORDERED PRN FOR SEVERE PAIN.
[2023-01-24] MEDS: CEFAZOLIN 1 GM in IV D5W 50 ML IV SCH (05:10)
--- NOTE | 2023-01-24 06:43 | NUR ---
MS RN NOTES ON BED SLEPT WELL AT NIGHT.PAIN IMPROVED WITH PAIN MANAGEMENT.GUZMAN CATH DRAINS WELL,EMPTIED 900ML OF URINE.IVF INFUSING WELL ON LEFT HAND SALINE .IN NO ACUTE DISTRESS.WILL ENDORSE TO [facility] HAMMONDS FOR JOSE
[2023-01-24 07:00] VITALS: BP 138/66
--- NOTE | 2023-01-24 07:49 | NUR ---
MS RN NOTES RECEIVED ON BED SLEEPING,AROUSABLE TO VERBAL STIMULI,BREATHING REGULAR, NO C/O OF PAIN AND DISCOMFORT AT THIS TIME , NO SOB OR DISTRESS NOTED .S/P RIGHT HIP ORIF 01/[address] JOE,DRESSING INTACT AND DRY.GUZMAN CATH IN PLACE DRAINS YELLOWISH OUTPUT. IV ACCESS ON LEFT HAND G#20 WITH IVF D5NS AT 70ML/HR RATE INFUSING WELL, IV ACCCES #2 @ LFA G#22 SITE PATENT AND SL . SAFETY MEASURES PROVIDED , SR UP X 2 , CALL LIGHT WITHIN REACH AND WILL CONTINUE TO MONITOR STATUS .
[2023-01-24] MEDS: PANTOPRAZOLE 40 MG TABLET.DR PO SCH ×2 (08:33→21:03)
[2023-01-24] MEDS: CHLORDIAZEPOXIDE HCL 25 MG CAPSULE PO SCH ×2 (08:33→16:51)
[2023-01-24] MEDS: THIAMINE HCL 100 MG TABLET PO SCH (08:33)
[2023-01-24] MEDS ORDERED: ENOXAPARIN SODIUM 40 MG/0.4 ML DISP.SYRIN SQ SCH (09:00)
[2023-01-24] MEDS: HYDROCODONE/APAP 5/325MG TABLET PO PRN (09:22)
[2023-01-24 10:31] LABS: BASOPHILS % (AUTO) 0.5 % (0.0-2.0); EOSINOPHILS % (AUTO) 0.9 % (0.0-6.0); HEMATOCRIT 32 % (39-51); HEMOGLOBIN 10.5 g/dL (13.5-17.5); LYMPHOCYTES # (AUTO) 0.6 K/uL (0.8-4.8); LYMPHOCYTES % (AUTO) 7.5 % (20.0-44.0); MEAN CORPUSCULAR HGB CONC 33 g/dl (31.0-36.0); MEAN CORPUSCULAR VOLUME 89 fL (80-96); NEUTROPHILS # (AUTO) 6.3 K/uL (1.8-8.9); NEUTROPHILS % (AUTO) 78.1 % (43.0-81.0); PLATELET COUNT (AUTO) 56 K/uL (150-450); RED BLOOD CELL COUNT(AUTO) 3.57 MIL/uL (4.5-6.0); WHITE BLOOD COUNT (AUTO) 8.1 K/uL (4.3-11.0)
[2023-01-24 10:41] LABS: CALCIUM, SERUM 7.9 mg/dL (8.5-10.1); CREATININE 0.6 mg/dL (0.6-1.3); MAGNESIUM 1.6 mg/dL (1.8-2.4); PHOSPHORUS 2.7 mg/dL (2.5-4.9); POTASSIUM 3.2 mmol/L (3.5-5.1)
[2023-01-24] MEDS: ENOXAPARIN SODIUM 40 MG/0.4 ML DISP.SYRIN SQ SCH (11:59)
[2023-01-24 12:24] LABS: BAND % (MANUAL) 3 % (0.0-5.0); LYMPHOCYTES % (MANUAL) 6 % (16-48); METAMYELOCYTES % 1 % (0-0); MONOCYTES % (MANUAL) 9 % (0-11.0); MYELOCYTES % 1 % (0-0); NEUTROPHILS % (MANUAL) 80 (42-76)
[2023-01-24] MEDS: IV D5/ 0.9% NACL 1,000 ML IV PRN (13:42)
[2023-01-24] MEDS: SOD FERRIC GLUC 125 MG in IV NS 0.9% 100 ML IV SCH (14:04)
[2023-01-24 16:00] VITALS: BP 127/89
--- NOTE | 2023-01-24 18:34 | NUR ---
MS RN CLOSING NOTES PATIENT ON BED AWAKE WITH CONFUSION , RESPONSIVE TO VERBAL STIMULI,BREATHING REGULAR, C/O OF PAIN AND DISCOMFORT AND GIVEN WITH NORCO 2 TABS ORDERED , NO SOB OR DISTRESS NOTED .S/P RIGHT HIP ORIF 01/[address] JOE,DRESSING INTACT AND DRY.GUZMAN CATH WAS REMOVED AND MONITORED FOR RETENTION . IV ACCESS ON LEFT HAND G#20 WITH IVF D5NS AT 70ML/HR RATE INFUSING WELL, . SEEN BY PT FOR EVAL AND TX AND ABLE TO DO EDGE OF THE BED WITH WBAT ON THE RLE , SAFETY MEASURES PROVIDED , SR UP X 2 , CALL LIGHT WITHIN REACH AND ENDORSED TO NEXT SHIFT .
--- NOTE | 2023-01-24 19:30 | NUR ---
MS RN NOTES RECEIVED ON BED,LEFT SIDE POSITION,S/P RIGHT HIP ORIF,DRESSING INTACT AND DRY.ON BILATERAL SOFT WRIST RESTRAINTS FOR SAFETY,TRYING TO PULLOUT TUBINGS.INCONTINENT OF URINE,IVF D5NS AT 70ML/HR RATE INFUSING WELL ON RIGHT HAND SALINE LOCK,FALL RISK,BED ON LOWEST POSITION AND LOCKED,BED ALARM,CALL LIGHT IN REACH,NEEDS ANTICIPATED.
[2023-01-24 20:00] VITALS: BP 120/76
--- NOTE | 2023-01-25 05:30 | NUR ---
MS RN NOTES ABLE TO GET OUT OF BED,STANDING BY THE BEDSIDE.PUT BACK TO BED,CLEANED AND KEPT DRY,RESTRAINTS RIGHT ARM IN PLACE,LEFT ARM WRIST RESTRAINTS ON RELEASED THIS TIME.
[2023-01-25] MEDS: HYDROCODONE/APAP 5/325MG TABLET PO PRN (05:55)
--- NOTE | 2023-01-25 05:55 | NUR ---
MS RN NOTES FACIAL GRIMACE NOTED,MEDICATED WITH NORCO 5/325MG,2 TABS PO FOR STRONG PAIN.FALL PRECAUTION OBSERVED,BED ALARM TRIGGERED.
--- NOTE | 2023-01-25 06:27 | NUR ---
MS RN NOTES FAIRLY RESTED AT NIGHT,NO ALCOHOL WITHDRAWAL NOTED.PAIN MANAGEMENT EFFECTIVE,PAIN IMPROVED.IN NO ACUTE DISTRESS.
[2023-01-25 07:00] VITALS: BP 107/55
--- NOTE | 2023-01-25 07:27 | NUR ---
MS RN OPENING NOTES RECEIVED PATIENT ON BED, AWAKE. A/O X 1-2 CONFUSED, COOPERATIVE, BERMUDIAN SPEAKING. ON ROOM AIR, NO SIGNS OF ACUTE RESPIRATORY DISTRESS NOTED. NO C/O OF PAIN/DISCOMFORT AT THIS TIME. S/P RIGHT HIP ORIF 01/23 WITH DRY DRESSING, INTACT. IV ACCESS ON LEFT HAND #20G WITH ONGOING IVF D5NS AT 70ML/HR, INFUSING WELL. WITH SOFT RESTRAINTS ON THE RIGHT UPPER EXTREMITY, NO REDNESS ON SKIN NOTED. SAFETY MEASURE IN PLACE: SIDE: BED LOCKED AND IN LOWEST POSITION, SIDE RAILS X 3, CALL LIGHT WITHIN EASY REACH. WILL CONTINUE TO MONITOR.
[2023-01-25] MEDS: PANTOPRAZOLE 40 MG TABLET.DR PO SCH ×2 (08:29→20:53)
[2023-01-25] MEDS: POTASSIUM CHLORIDE 20 MEQ TAB.PRT.SR PO SCH ×3 (08:30→10:18)
[2023-01-25] MEDS: THIAMINE HCL 100 MG TABLET PO SCH (08:30)
[2023-01-25] MEDS: CHLORDIAZEPOXIDE HCL 25 MG CAPSULE PO SCH ×2 (08:31→17:26)
[2023-01-25] MEDS: Magnesium 1GM/D5W 100ML PREMIX 100 ML IV SCH ×2 (08:32→10:25)
[2023-01-25] MEDS: ENOXAPARIN SODIUM 40 MG/0.4 ML DISP.SYRIN SQ SCH (09:39)
[2023-01-25] MEDS: MORPHINE SULFATE INJ 4 MG/ML DISP.SYRIN IV PRN (11:03)
--- NOTE | 2023-01-25 11:05 | NUR ---
RN NOTES OBSERVES PT GUARDING/HOLDING RIGHT HIP AND FACIAL GRIMACING, MORPHINE 4MG/ML IV PRN GIVEN AT 1103, WILL CONTINUE TO MONITOR.
[2023-01-25] MEDS: SOD FERRIC GLUC 125 MG in IV NS 0.9% 100 ML IV SCH (15:20)
[2023-01-25 16:00] VITALS: BP 110/80
--- NOTE | 2023-01-25 18:41 | NUR ---
MS RN CLOSING NOTES PATIENT RESTING IN BED. A/O X 1-2 CONFUSED, COOPERATIVE, MALAY SPEAKING. ON ROOM AIR, NO SIGNS OF ACUTE RESPIRATORY DISTRESS NOTED. NO C/O OF PAIN/DISCOMFORT AT THIS TIME. IV ACCESS ON LEFT UPPER ARM #22G WITH ONGOING IVF D5NS AT 70ML/HR, INFUSING WELL. WAS ABLE TO REMOVE SOFT RESTRAINTS ON THE BILATERAL UPPER EXTREMITY, PT IS CALM AND NOT RESTLESS. NEEDS ATTENDED. SAFETY MEASURE IN PLACE: SIDE: BED LOCKED AND IN LOWEST POSITION, SIDE RAILS X 3, CALL LIGHT WITHIN EASY REACH. WILL ENDORSE JOSE TO COSTUMED CHARACTER.
--- NOTE | 2023-01-25 19:40 | NUR ---
MS RN OPENING NOTES; RECEIVED PATIENT SLEEP IN BED COMFORTABLY, AROUSABLE TO VERBAL STIMULI, BED IN LOW POSITION, CALL LIGHTS WITHIN REACH, NO COMPLAIN OF PAIN AND DISCOMFORT AT THIS TIME, ON ROOM AIR SATURATING WELL, PATIENT IS A/OX 1-2 WITH EPISODE OF CONFUSION, IV LINE AT YOUNG #22 WITH ONGOING D5NS@70ML/HR INFUSING WELL, PATIENT KEPT CLEAN AND DRY ALL NEEDS MET WILL CONTINUE TO MONITOR.
[2023-01-25 20:00] VITALS: BP 125/85
[2023-01-25] MEDS: IV D5/ 0.9% NACL 1,000 ML IV PRN (20:15)
--- NOTE | 2023-01-26 06:17 | NUR ---
MS RN CLOSING NOTES: PATIENT SLEEP IN BED COMFORTABLY, AROUSABLE TO VERBAL STIMULI, BED IN LOW POSITION CALL LIGHTS WITHIN REACH, NO COMPLAIN OF PAIN AND DISCOMFORT AT THIS TIME, ON ROOM AIR SATURATING WELL, PATIENT IS A/O X1-2 ,NO EPISODE OF CONFUSION DURING THE SHIFT. IV LINE AT YOUNG #22 WITH ONGOING [id number] INFUSING WELL, PATIENT KEPT CLEAN AND DRY ALL NEEDS MET ENDORSE TO INCOMING SHIFT.
[2023-01-26 07:23] LABS: CREATININE 0.6 mg/dL (0.6-1.3); MAGNESIUM 1.7 mg/dL (1.8-2.4); POTASSIUM 2.9 mmol/L (3.5-5.1)
[2023-01-26] MEDS: ENOXAPARIN SODIUM 40 MG/0.4 ML DISP.SYRIN SQ SCH (09:33)
[2023-01-26] MEDS: THIAMINE HCL 100 MG TABLET PO SCH (09:34)
[2023-01-26] MEDS: CHLORDIAZEPOXIDE HCL 25 MG CAPSULE PO SCH ×2 (09:34→17:29)
[2023-01-26] MEDS: PANTOPRAZOLE 40 MG TABLET.DR PO SCH ×2 (09:34→20:38)
[2023-01-26] MEDS ORDERED: MAGNESIUM OXIDE 400 MG TABLET PO ONE (10:00)
[2023-01-26] MEDS ORDERED: POTASSIUM CHLORIDE 20 MEQ TAB.PRT.SR PO SCH (10:30)
[2023-01-26] MEDS: SOD FERRIC GLUC 125 MG in IV NS 0.9% 100 ML IV SCH (14:45)
[2023-01-26] MEDS: IV D5/ 0.9% NACL 1,000 ML IV PRN (14:49)
[2023-01-26] MEDS: HYDROCODONE/APAP 5/325MG TABLET PO PRN (17:51)
--- NOTE | 2023-01-26 19:02 | NUR ---
MS RN CLOSING NOTES; PATIENT SLEEP IN BED COMFORTABLY, AWAKE A/0X2 , BED IN LOW POSITION, CALL LIGHTS WITHIN REACH, COMPLAIN OF PAIN AND DISCOMFORT AND PAIN MEDICINE GIVEN ORDERED , ON ROOM AIR SATURATING WELL, PATIENT IS A/OX 1-2 WITH EPISODE OF CONFUSION, IV LINE AT YOUNG #22 WITH ONGOING D5NS@70ML/HR INFUSING WELL, PATIENT KEPT CLEAN AND DRY ALL NEEDS MET AND ENDORSED TO NEXT SHIFT .
--- NOTE | 2023-01-26 19:35 | NUR ---
RN OPENING NOTE RECEIVED PATIENT IN BED; AWAKE, A/O X 1-2. MONTENEGRIN SPEAKING WITH EPISODES OF CONFUSION. ON ROOM AIR; TOLERATING WELL WITH NO S/S OF RESPIRATORY OR CARDIAC DISTRESS. NO COMPLAINTS OF ANY PAIN AND DISCOMFORT MADE AT THIS TIME. WITH IV LINE ON LEFT UA 22g; PATENT AND INTACT WITH ONGOING IVF OF D5NS 1L RUNNING @ 70ML/HR; FLUSHES WELL. SAFETY PRECAUTIONS IMPLEMENTED: CALL LIGHT AND TABLE WITHIN REACH, SIDE RAILS UP X 3, BED IN LOWEST LOCKED POSITION. WILL CONTINUE PLAN OF CARE.
[2023-01-26 20:00] VITALS: BP 112/81
[2023-01-27] MEDS: HYDROCODONE/APAP 5/325MG TABLET PO PRN (04:41)
[2023-01-27] MEDS: IV D5/ 0.9% NACL 1,000 ML IV PRN (06:12)
--- NOTE | 2023-01-27 06:40 | NUR ---
RN CLOSING NOTE PATIENT IN BED; AWAKE, A/O X 1-2. MAORI SPEAKING. STABLE ON ROOM AIR. DENIES ANY PAIN OR DISCOMFORT AT THIS TIME. WITH IV LINE ON LEFT UA 22g; PATENT AND INTACT WITH ONGOING IVF OF D5NS 1L RUNNING @ 70ML/HR; FLUSHES WELL. ALL DUE MED GIVEN ORDERED. SAFETY MEASURES MAINTAINED: CALL LIGHT AND TABLE WITHIN REACH, SIDE RAILS UP X 3, BED IN LOWEST LOCKED POSITION. ENDORSED TO MORNING SHIFT FOR JOSE.
--- NOTE | 2023-01-27 07:17 | NUR ---
SALES ASSISTANT OPENING NOTE RECEIVED PATIENT IN BED; AWAKE, A/O X 1-2. FRISIAN SPEAKING ON ROOM AIR; TOLERATING WELL WITH NO S/S OF RESPIRATORY OR CARDIAC DISTRESS. NO COMPLAINTS OF ANY PAIN AND DISCOMFORT MADE AT THIS TIME. WITH IV LINE ON LEFT UA 22g; PATENT AND INTACT WITH ONGOING IVF OF D5NS 1L RUNNING @ 70ML/HR; FLUSHES WELL. SAFETY PRECAUTIONS IMPLEMENTED: CALL LIGHT AND TABLE WITHIN REACH, SIDE RAILS UP X 3, BED IN LOWEST LOCKED POSITION. WILL CONTINUE TO MONITOR.
[2023-01-27] MEDS: PANTOPRAZOLE 40 MG TABLET.DR PO SCH ×2 (08:24→20:26)
[2023-01-27] MEDS: THIAMINE HCL 100 MG TABLET PO SCH (08:24)
[2023-01-27] MEDS: ENOXAPARIN SODIUM 40 MG/0.4 ML DISP.SYRIN SQ SCH (08:24)
[2023-01-27] MEDS: CHLORDIAZEPOXIDE HCL 25 MG CAPSULE PO SCH ×2 (08:24→16:13)
[2023-01-27 09:15] LABS: CREATININE 0.6 mg/dL (0.6-1.3)
[2023-01-27 09:18] LABS: BASOPHILS % (AUTO) 0.3 % (0.0-2.0); EOSINOPHILS % (AUTO) 0.9 % (0.0-6.0); HEMATOCRIT 27 % (39-51); HEMOGLOBIN 8.9 g/dL (13.5-17.5); LYMPHOCYTES # (AUTO) 1.1 K/uL (0.8-4.8); LYMPHOCYTES % (AUTO) 18.6 % (20.0-44.0); MEAN CORPUSCULAR HGB CONC 33 g/dl (31.0-36.0); MEAN CORPUSCULAR VOLUME 89 fL (80-96); MONOCYTES % (AUTO) 16.9 % (2.0-12.0); NEUTROPHILS # (AUTO) 3.8 K/uL (1.8-8.9); NEUTROPHILS % (AUTO) 63.3 % (43.0-81.0); PLATELET COUNT (AUTO) 71 K/uL (150-450); RED BLOOD CELL COUNT(AUTO) 3.06 MIL/uL (4.5-6.0); WHITE BLOOD COUNT (AUTO) 5.9 K/uL (4.3-11.0)
[2023-01-27 12:40] LABS: BAND % (MANUAL) 4 % (0.0-5.0); LYMPHOCYTES % (MANUAL) 12 % (16-48); MONOCYTES % (MANUAL) 8 % (0-11.0); NEUTROPHILS % (MANUAL) 76 (42-76)
[2023-01-27] MEDS: SOD FERRIC GLUC 125 MG in IV NS 0.9% 100 ML IV SCH (14:32)
[2023-01-27 15:51] VITALS: BP 112/81
--- NOTE | 2023-01-27 18:25 | NUR ---
VARNISH DIPPER CLOSING NOTE PATIENT IN BED; SLEEPING, A/O X 1-2. HONDURAN SPEAKING ON ROOM AIR; TOLERATING WELL WITH NO S/S OF RESPIRATORY OR CARDIAC DISTRESS. NO COMPLAINTS OF ANY PAIN AND DISCOMFORT MADE AT THIS TIME. WITH IV LINE ON LEFT UA 22g; PATENT AND INTACT WITH ONGOING IVF OF D5NS 1L RUNNING @ 70ML/HR; FLUSHES WELL. SAFETY PRECAUTIONS IMPLEMENTED: CALL LIGHT AND TABLE WITHIN REACH, SIDE RAILS UP X 3, BED IN LOWEST LOCKED POSITION. WILL ENDORSE TO SEWING DEMONSTRATOR NURSE
--- NOTE | 2023-01-27 19:30 | NUR ---
MS RN OPENING NOTE RECEIVED PATIENT IN BED; AWAKE, A/O X 1-2, GEORGIAN SPEAKING; STABLE ON ROOM AIR; TOLERATING WELL AND WITH NO S/S OF RESPIRATORY OR CARDIAC DISTRESS; NO COMPLAINTS OF ANY PAIN AND DISCOMFORT AT THIS TIME; WITH IV ACCESS ON LEFT UA G22, PATENT AND INTACT WITH ONGOING IVF OF D5NS 1L RUNNING AT 70ML/HR; ENCOURAGED VERBALIZATION OF NEEDS; SAFETY PRECAUTIONS IMPLEMENTED: CALL LIGHT AND TABLE WITHIN REACH, SIDE RAILS UP X 3, BED IN LOWEST LOCKED POSITION. WILL CONTINUE TO MONITOR THROUGHOUT SHIFT
[2023-01-27 20:00] VITALS: BP 120/76
[2023-01-28] MEDS: IV D5/ 0.9% NACL 1,000 ML IV PRN ×2 (02:19→15:23)
--- NOTE | 2023-01-28 02:30 | NUR ---
MS RN NOTE UPON MAKING ROUNDS, NOTICED THAT PATIENT'S IV WAS PULLED OUT WHILE SLEEPING. REINSERTED IV AT LFA G22, INTACT AND PATENT, FLUSHED WITH NORMAL SALINE. WILL CONTINUE TO MONITOR
--- NOTE | 2023-01-28 07:00 | NUR ---
MS RN CLOSING NOTE PATIENT SLEEP IN BED COMFORTABLY, AROUSABLE TO VERBAL STIMULI, BED IN LOW POSITION, CALL LIGHTS WITHIN REACH, NO COMPLAIN OF PAIN AND DISCOMFORT AT THIS TIME, ON ROOM AIR SATURATING WELL, PATIENT IS A/OX 1-2 WITH EPISODE OF CONFUSION, IV LINE AT LFA G #22 WITH ONGOING D5NS@70ML/HR INFUSING WELL, ADMINISTERED MEDS ORDERED; PATIENT'S NEEDS ATTENDED; PATIENT KEPT CLEAN AND DRY ALL NEEDS MET WILL CONTINUE TO MONITOR; WILL ENDORSE FOR JOSE.
--- NOTE | 2023-01-28 07:37 | NUR ---
MS RN OPENING NOTES; RECEIVED PATIENT SLEEP IN BED COMFORTABLY, AROUSABLE TO VERBAL STIMULI, BED IN LOW POSITION, CALL LIGHTS WITHIN REACH, NO COMPLAIN OF PAIN AND DISCOMFORT AT THIS TIME, ON ROOM AIR SATURATING WELL, PATIENT IS A/OX 1-2 WITH EPISODE OF CONFUSION, IV LINE AT LFA G #22 WITH ONGOING D5NS@70ML/HR INFUSING WELL, PATIENT KEPT CLEAN AND DRY ALL NEEDS MET WILL CONTINUE TO MONITOR.
[2023-01-28 08:00] VITALS: BP 126/74
[2023-01-28] MEDS: PANTOPRAZOLE 40 MG TABLET.DR PO SCH ×2 (09:21→21:20)
[2023-01-28] MEDS: THIAMINE HCL 100 MG TABLET PO SCH (09:21)
[2023-01-28] MEDS: CHLORDIAZEPOXIDE HCL 25 MG CAPSULE PO SCH ×2 (09:21→16:12)
[2023-01-28] MEDS: ENOXAPARIN SODIUM 40 MG/0.4 ML DISP.SYRIN SQ SCH (10:27)
--- NOTE | 2023-01-28 10:30 | NUR ---
RN NOTES PATIENT IS WITH PLATELET OF 72 AND CLARIFIED WITH PAWEL REZA AND HE SAID OK TO GIVE THE LOVENOX . MEDS GIVEN ORDERED
[2023-01-28] MEDS ORDERED: MAGNESIUM OXIDE 400 MG TABLET PO ONE (11:00)
[2023-01-28] MEDS ORDERED: POTASSIUM CHLORIDE 20 MEQ TAB.PRT.SR PO ONE ×2 (11:00→16:00)
[2023-01-28] MEDS: HYDROCODONE/APAP 5/325MG TABLET PO PRN (11:53)
[2023-01-28 16:00] VITALS: BP 114/72
--- NOTE | 2023-01-28 18:32 | NUR ---
MS RN CLOSING NOTES; PATIENT IN BED AWAKE AND VERBALLY RESPONSIVE , ALL DUE MEDS ORDERED GIVEN , BED IN LOW POSITION, CALL LIGHTS WITHIN REACH, COMPLAIN OF PAIN AND DISCOMFORT AND NORCO 2 TABS GIVEN , ON ROOM AIR SATURATING WELL, PATIENT IS A/OX 1-2 WITH EPISODE OF CONFUSION, IV LINE AT LFA G #22 WITH ONGOING D5NS@70ML/HR INFUSING WELL, PATIENT KEPT CLEAN AND DRY AT ALL TIMES AND ENDORSED TO THE NEXT SHIFT
--- NOTE | 2023-01-28 19:35 | NUR ---
MS RN OPENING NOTE RECEIVED PATIENT IN BED; AWAKE, A/O X 2. TELUGU SPEAKING. WITH EPISODES OF CONFUSION. ON ROOM AIR; TOLERATING WELL WITH NO S/S OF RESPIRATORY OR CARDIAC DISTRESS. NO COMPLAINTS OF PAIN OR DISCOMFORT MADE AT THIS TIME. WITH IV ACCESS ON LEFT FA 22g; PATENT AND INTACT WITH ONGOING IVF OF D5NS 1L RUNNING @ 70ML/HR; FLUSHES WELL. SAFETY PRECAUTIONS IMPLEMENTED: CALL LIGHT AND TABLE WITHIN REACH, SIDE RAILS UP X 3, BED IN LOWEST LOCKED POSITION. WILL CONTINUE PLAN OF CARE.
[2023-01-28 20:00] VITALS: BP 106/68
[2023-01-29] MEDS: IV D5/ 0.9% NACL 1,000 ML IV PRN ×2 (06:05→18:07)
--- NOTE | 2023-01-29 06:50 | NUR ---
MS RN CLOSING NOTE PATIENT IN BED; AWAKE, A/O X 2. STABLE ON ROOM AIR. IN NO ACUTE DISTRESS. NO COMPLAINTS OF PAIN OR DISCOMFORT. WITH IV ACCESS ON LEFT FA 22g; PATENT AND INTACT WITH IVF OF D5NS 1L RUNNING @ 70ML/HR; FLUSHES WELL. ALL NEEDS ATTENDED. SAFETY MEASURES MAINTAINED: CALL LIGHT AND TABLE WITHIN REACH, SIDE RAILS UP X 3, BED IN LOWEST LOCKED POSITION. ENDORSED TO MORNING SHIFT FOR JOSE.
[2023-01-29 08:00] VITALS: BP 102/65
[2023-01-29] MEDS: PANTOPRAZOLE 40 MG TABLET.DR PO SCH ×2 (08:56→20:58)
[2023-01-29] MEDS: CHLORDIAZEPOXIDE HCL 25 MG CAPSULE PO SCH ×2 (08:56→16:11)
[2023-01-29] MEDS: THIAMINE HCL 100 MG TABLET PO SCH (08:56)
[2023-01-29] MEDS: ENOXAPARIN SODIUM 40 MG/0.4 ML DISP.SYRIN SQ SCH (08:58)
[2023-01-29 16:00] VITALS: BP 122/81
--- NOTE | 2023-01-29 18:36 | NUR ---
MS RN CLOSING NOTES; PATIENT IN BED AWAKE AND VERBALLY RESPONSIVE , ALL DUE MEDS ORDERED GIVEN , BED IN LOW POSITION, CALL LIGHTS WITHIN REACH, NO COMPLAIN OF PAIN AND DISCOMFORT FOR THE WHOLE SHIFT , ON ROOM AIR SATURATING WELL, PATIENT IS A/OX 1-2 WITH EPISODE OF CONFUSION, IV LINE AT LFA G #22 WITH ONGOING D5NS@70ML/HR INFUSING WELL, PATIENT KEPT CLEAN AND DRY AT ALL TIMES AND ENDORSED TO THE NEXT SHIFT
--- NOTE | 2023-01-29 19:30 | NUR ---
MS RN OPENING NOTE RECEIVED PATIENT ASLEEP IN BED; A/O X 1-2, BRUNEIAN SPEAKING BUT CAN UNDERSTAND LITTLE MALAYSIAN; STABLE ON ROOM AIR, TOLERATING WELL AND WITH NO S/S OF RESPIRATORY OR CARDIAC DISTRESS; NO COMPLAINTS OF ANY PAIN AND DISCOMFORT AT THIS TIME; WITH IV ACCESS ON LEFT FA G22, PATENT AND INTACT WITH ONGOING IVF OF D5NS 1L RUNNING AT 70ML/HR; SAFETY PRECAUTIONS IMPLEMENTED: CALL LIGHT AND TABLE WITHIN REACH, SIDE RAILS UP X 3, BED IN LOWEST LOCKED POSITION. WILL CONTINUE TO MONITOR THROUGHOUT SHIFT
--- NOTE | 2023-01-29 19:35 | NUR ---
MS RN OPENING NOTES; RECEIVED PATIENT IN BED AAOX4 ABLE TO VERBALIZE NEEDS, ON ROOM AIR SAT 98%,NO SOB/DISTRESS NOTED,NO COMPLAIN OF PAIN/DISCOMFORT AT THIS TIME, IV LINE AT LFA G #22 WITH D5NS@70ML/HR INFUSING WELL,SAFETY MEASURE IN PLACE,CALL LIGHT WITHIN REACH,WILL CONTINUE TO MONITOR.
[2023-01-29 20:00] VITALS: BP 101/74
[2023-01-30] MEDS: IV D5/ 0.9% NACL 1,000 ML IV PRN ×2 (05:17→23:46)
[2023-01-30 05:54] LABS: BASOPHILS % (AUTO) 0.3 % (0.0-2.0); EOSINOPHILS % (AUTO) 1.4 % (0.0-6.0); HEMATOCRIT 28 % (39-51); HEMOGLOBIN 9.2 g/dL (13.5-17.5); LYMPHOCYTES # (AUTO) 1.3 K/uL (0.8-4.8); LYMPHOCYTES % (AUTO) 17.4 % (20.0-44.0); MEAN CORPUSCULAR HGB CONC 33 g/dl (31.0-36.0); MEAN CORPUSCULAR VOLUME 90 fL (80-96); MONOCYTES # (AUTO) 0.9 K/uL (0.1-1.30); MONOCYTES % (AUTO) 12.4 % (2.0-12.0); NEUTROPHILS # (AUTO) 5.1 K/uL (1.8-8.9); NEUTROPHILS % (AUTO) 68.5 % (43.0-81.0); PLATELET COUNT (AUTO) 124 K/uL (150-450); RED BLOOD CELL COUNT(AUTO) 3.13 MIL/uL (4.5-6.0); WHITE BLOOD COUNT (AUTO) 7.5 K/uL (4.3-11.0)
[2023-01-30 06:26] LABS: CALCIUM, SERUM 8.3 mg/dL (8.5-10.1); CREATININE 0.7 mg/dL (0.6-1.3); PHOSPHORUS 4.3 mg/dL (2.5-4.9); POTASSIUM 3.3 mmol/L (3.5-5.1)
--- NOTE | 2023-01-30 06:41 | NUR ---
MS RN CLOSING NOTE PATIENT ASLEEP IN BED; A/O X 1-2, KUWAITI SPEAKING BUT CAN UNDERSTAND LITTLE ANGUILLAN; STABLE ON ROOM AIR, TOLERATING WELL AND WITH NO S/S OF RESPIRATORY OR CARDIAC DISTRESS; NO COMPLAINTS OF ANY PAIN AND DISCOMFORT AT THIS TIME; WITH IV ACCESS ON LEFT FA G22, PATENT AND INTACT INFUSING WITH D5NS 1L RUNNING AT 70ML/HR; ADMINISTERED MEDICATIONS PRESCRIBED; PATIENT'S NEEDS ATTENDED; MONITORED PATIENT ACCORDINGLY; SAFETY PRECAUTIONS IMPLEMENTED: CALL LIGHT AND TABLE WITHIN REACH, SIDE RAILS UP X 3, BED IN LOWEST LOCKED POSITION; WILL ENDORSE TO AM NURSE FOR JOSE.
--- NOTE | 2023-01-30 07:25 | NUR ---
MS RN OPENING NOTE RECEIVED PATIENT IN BED; AWAKE, A/O X 2. LATVIAN SPEAKING, ABLE TO MAKE NEEDS KNOWN, WITH EPISODES OF CONFUSION. ON ROOM AIR BREATHING WITHOUT ANY DIFFICULTY, NO S/S OF ANY ACUTE DISTRESS NOTED. DENIED PAIN NOR DISCOMFORT AT THIS TIME. IV ACCESS ON LFA 22G#; PATENT AND INTACT WIT RUNNING D5NS @ 70ML/HR; FLUSHING WELL. SAFETY PRECAUTIONS IN PLACE: BED IN LOWEST LOCKED POSITION, SIDE RAILS UP X 2, BED ALARM ON, CALL LIGHT AND TRAY TABLE WITHIN REACH, WILL CONTINUE PLAN OF CARE.
[2023-01-30 07:28] LABS: MAGNESIUM 1.2 mg/dL (1.8-2.4)
[2023-01-30 08:03] VITALS: BP 119/78
[2023-01-30] MEDS: PANTOPRAZOLE 40 MG TABLET.DR PO SCH ×2 (08:37→21:08)
[2023-01-30] MEDS: THIAMINE HCL 100 MG TABLET PO SCH (08:37)
[2023-01-30] MEDS: CHLORDIAZEPOXIDE HCL 25 MG CAPSULE PO SCH ×2 (08:37→16:24)
[2023-01-30] MEDS: ENOXAPARIN SODIUM 40 MG/0.4 ML DISP.SYRIN SQ SCH (08:45)
[2023-01-30] MEDS ORDERED: Magnesium 1GM/D5W 100ML PREMIX PIGGYBACK IV ONE ×2 (09:00→11:30)
[2023-01-30] MEDS ORDERED: POTASSIUM CHLORIDE 20 MEQ TAB.PRT.SR PO ONE (09:00)
--- NOTE | 2023-01-30 11:30 | NUR ---
RN NOTES - PT WAS EVALUATED BY SPEECH THERAPIST, DIET WAS CHANGED TO SOFT DIET BECAUSE PT HAS NO DENTURES.
[2023-01-30 15:54] VITALS: BP_SYST 134; BP_SYST 149; BP_DIAS 87; BP_DIAS 96
--- NOTE | 2023-01-30 16:55 | NUR ---
SS CONSULT: SS Consult requested for homelessness. The pt. is a 53-year-old male pt. who was admitted to Med Surg for ETOH intoxication, acute encephalopathy, acute rhabdo per EMR. Upon SS consult, the pt. is Alert & Oriented x 4 and makes good eye contact. The pt. appears unkempt. Pt. has depressed mood & affect. Pt. has clear speech and normal thought process. Pt. was calm & cooperative throughout interview. The pt. denies current SI/HI and denies current hallucinations. SW explored pt.s mental health Hx. Pt. denies any Hx. of mental health. SW explored pt.s living situation, Pt. states he has been experiencing homelessness for MONTHS. SW explored pt.s drug & ETOH use. Pt. states he uses ALCOHOL daily and drinks about 4-5 beers daily and smokes about 6 cigarettes daily. SW completed brief drug dependence intervention. Pt. is agreeable to referral for residential drug treatment. Pt. also accepted resources for drug rehab. Per pt. he is able to ambulate somewhat but is weak and can completed some of his ADLs. Pt. states he does not receive any financial assistance. Pt. states that he his support system includes his brother, Brayan Whalen tel: [phone] who was at bedside. Plan: Pt. states that he is agreeable to DC with family. Pt.s brother stated they are willing to have him go home with family. SW provided pt. with resources for homelessness: shelters, hot meals, showers, mental health clinics and for drug treatment etc. Pt. accepted resources and pt. signed homeless waiver which was placed in the pt.s chart. LUCERO discussed with pt.s nurse. [facility] list : [place] [facility]; [facility] Adult WSP site; [facility] Adult WSP site; and [facility] Adult WSP site; instruction to call 211 for availability. Year-round shelters: [facility] [place] [address] [place] [address] ; [facility] [place] [address] [place] [address]; [facility] [facility]. [facility] [address] Hygiene: [facility] [address] [place] ; [facility] [address] [facility] [place] ; [facility] [address] [facility] . Food Resources: [facility] at [facility]- [address] [place]; Meet Each Need with Dignity ([facility]) [address] [facility]; [facility] [address] [facility]; [facility] [address] [facility]. Mental Health resources provided: [facility] [address] [place], [place] [address] ; [facility] [address] [facility] [address], [place], [place] [phone] ; [facility] [address] [facility] [place], [place] [phone] ; [facility] [address] [place], [place] [phone] Healthcare Clinics: [facility] [address] [facility], [address] [place]. [place] ; [facility] [address] [facility] [place] [address] [place] [address]; [facility] [address] [facility] [place] [phone] Counseling--Outpatient [facility] [address] [facility], [place] [address] (Specializes in in-depth psychotherapy for emotional distress: anxiety, depression, interpersonal conflicts, life transitions, childhood abuse) [facility] [address] [place] [address] (Assist with solving problem marital difficulties, separation & divorce, aging parents, & grief, chronic & terminal illness) [facility] [address] [place] [address] (Deal with loss & grief, anxiety, marital difficulties) Homebound/Mental Health Services [address] [facility], [address] [place] [address] (Provide in-home mental services to people who are incapable of leaving their homes) [facility] [address] [place] [address] [facility] [address] [place] [address] PSYCHIATRIC OUTPATIENT SERVICES [facility] Partial Hospitalization and Intensive Outpatient Program (Managed Care and [place] Only)[address] [facility]. [facility] [phone] [facility] Partial Hospitalization and Outpatient [id number] [facility] [place], [place] [phone] [facility] [id number] [facility]. [address] [place], [place] [phone] [facility] Partial Hospitalization and Outpatient [id number] [place], [phone] Substance Abuse resources provided included: [facility] Substance Abuse Self-Helpline ([facility]) ; [facility] [address] [facility]. [place] [phone] ; [facility] [address] [facility] [address] ; [facility] [address] [facility] [address] ; [facility] [address] [facility] [address] ; [facility] [address] [facility] [address] ; [facility] [address] [facility] [address] ; [facility] Substance Abuse Helpline([facility])-[facility] ; [facility] ; [facility] [place]; [facility] [place]; [facility] [place]; [facility] Reg[place]d Ramismael; [facility] [place]; [facility] [place]; [facility] [place]; [facility], [facility]. [place]; Alcoholics Anonymous -SFV; Uj-Ewyc-Qvfngdc ; Marijuana Anonymous -[facility]; Narcotics Anonymous www.na.org;
--- NOTE | 2023-01-30 18:25 | NUR ---
MS RN CLOSING NOTE PATIENT IN BED; AWAKE, STILL EATING HIS DINNER SLOWLY, A/OX2-3 ARMENIAN SPEAKING, ABLE TO MAKE NEEDS KNOWN. STILL ON ROOM AIR BREATHING WITHOUT ANY DIFFICULTY, NO S/S OF ANY ACUTE DISTRESS NOTED. DENIED PAIN NOR DISCOMFORT AT THIS TIME. STILL WITH IV ACCESS ON LFA 22G#; PATENT AND INTACT WIT RUNNING D5NS @ 70ML/HR; FLUSHING WELL. ALL NEEDS MET, ALL DUE MEDS GIVEN. SAFETY PRECAUTIONS MAINTAINED: BED IN LOWEST AND LOCKED POSITION, SIDE RAILS UP X 2, BED ALARM ON, CALL LIGHT AND TRAY TABLE WITHIN REACH. WILL ENDORSE TO SPECK DYER NURSE.
--- NOTE | 2023-01-30 19:33 | NUR ---
RN OPENING NOTE PATIENT ASLEEP IN BED. A/OX2. NO S/S OF DISTRESS, BREATHING WITHOUT DIFFICULTY ON ROOM AIR. LFA #22 INTACT AND PATENT W/ D5NS 70ML/HR. SAFETY MEASURES IN PLACE: BED LOCKED AND AT LOWEST POSITION, LOW-FOWLERS, RAILS X2, CALL ESCALANTE WITHIN REACH. WILL CONTINUE TO MONITOR PATIENT.
[2023-01-30 20:00] VITALS: BP 124/74
--- NOTE | 2023-01-31 06:36 | NUR ---
RN CLOSING NOTE PATIENT ASLEEP IN BED. A/OX2. NO S/S OF DISTRESS, BREATHING WITHOUT DIFFICULTY ON ROOM AIR. LFA #22 INTACT AND PATENT W/ D5NS 70ML/HR. SAFETY MEASURES IN PLACE: BED LOCKED AND AT LOWEST POSITION, LOW-FOWLERS, RAILS UP X2, CALL ESCALANTE WITHIN REACH. WILL ENDORSE TO NEXT SHIFT FOR JOSE.
[2023-01-31 07:00] LABS: BASOPHILS % (AUTO) 0.5 % (0.0-2.0); EOSINOPHILS % (AUTO) 1.3 % (0.0-6.0); HEMATOCRIT 30 % (39-51); HEMOGLOBIN 9.8 g/dL (13.5-17.5); LYMPHOCYTES # (AUTO) 1.2 K/uL (0.8-4.8); LYMPHOCYTES % (AUTO) 14.6 % (20.0-44.0); MEAN CORPUSCULAR HGB CONC 33 g/dl (31.0-36.0); MEAN CORPUSCULAR VOLUME 90 fL (80-96); MONOCYTES # (AUTO) 0.9 K/uL (0.1-1.30); MONOCYTES % (AUTO) 11.6 % (2.0-12.0); NEUTROPHILS # (AUTO) 5.7 K/uL (1.8-8.9); PLATELET COUNT (AUTO) 164 K/uL (150-450); RED BLOOD CELL COUNT(AUTO) 3.29 MIL/uL (4.5-6.0)
[2023-01-31 07:08] LABS: CALCIUM, SERUM 8.6 mg/dL (8.5-10.1); CREATININE 0.6 mg/dL (0.6-1.3); MAGNESIUM 1.4 mg/dL (1.8-2.4); PHOSPHORUS 4.4 mg/dL (2.5-4.9); POTASSIUM 3.6 mmol/L (3.5-5.1)
--- NOTE | 2023-01-31 07:36 | NUR ---
MS RN OPENING NOTES: RECEIVED PATIENT IN BED; A/OX2-3 WALLISIAN SPEAKING, ABLE TO MAKE NEEDS KNOWN. PT IS ON ROOM AIR BREATHING WITHOUT ANY DIFFICULTY, NO S/S OF SOB AND ACUTE DISTRESS NOTED. IV ACCESS ON LFA 22G#; PATENT AND INTACT RUNNING D5NS @ 70ML/HR. ALL SAFETY PRECAUTIONS MAINTAINED: BED IN LOWEST AND LOCKED POSITION, SIDE RAILS UP X 2, BED ALARM ON, CALL LIGHT AND TRAY TABLE WITHIN REACH, WILL CONT WITH PLAN OF CARE DURING SHIFT.
[2023-01-31 08:00] VITALS: BP 123/76
[2023-01-31] MEDS: CHLORDIAZEPOXIDE HCL 25 MG CAPSULE PO SCH ×2 (08:50→16:27)
[2023-01-31] MEDS: THIAMINE HCL 100 MG TABLET PO SCH (08:50)
[2023-01-31] MEDS: PANTOPRAZOLE 40 MG TABLET.DR PO SCH (08:50)
[2023-01-31] MEDS: ENOXAPARIN SODIUM 40 MG/0.4 ML DISP.SYRIN SQ SCH (08:51)
[2023-01-31] MEDS ORDERED: Magnesium 1GM/D5W 100ML PREMIX 100 ML IV SCH (09:00)
[2023-01-31] MEDS: Magnesium 1GM/D5W 100ML PREMIX 100 ML IV SCH ×2 (09:12→10:19)
[2023-01-31] MEDS: HYDROCODONE/APAP 5/325MG TABLET PO PRN (10:45)
[2023-01-31 15:51] VITALS: BP 123/77
--- NOTE | 2023-01-31 17:40 | NUR ---
MS RN DC NOTES: PT SEEN BY HCP, STABLE FOR DC. VITALS WNL. NO S/S OF SOB AND ACUTE DISTRESS ON RA. BROTHER AT BEDSIDE, LOVENOX ADMINISTRATION TEACHING DONE WITH BROTHER, STAFF TRANSLATED IN SAUDI ARABIAN, RETURN DEMONSTRATION DONE, ADDRESSED QUESTION. DC INSTRUCTIONS DISCUSSED BY ROHITH PARDO WITH PT AND BROTHER, TRANSLATED IN SAUDI ARABIAN BY STAFF. DC DOCUMENTS AND BELONGINGS LIST SIGNED. FOLLOW UP INFO FOR STAPLE REMOVAL GIVEN TO PT'S BROTHER; MD TATYANA CONTACT INFO DISCUSSED. FRONT WHEEL WALKER PROVIDED TO PT. LOVENOX DELIVERED TO UNIT BY CM, INSTRUCTIONS REINFORCED, PT AND PT'S BROTHER VERBALIZED UNDERSTANDING TO EVERYTHING DISCUSSED. IV ACCESS AND ID BAND REMOVED, PT REFUSED PHOTO OF SKIN ISSUES. PT LEFT UNIT VIA WHEELCHAIR, ESCORTED BY STAFF TO LOBBY, LEFT VIA PRIVATE CARE WITH BROTHER JOHN.
[2023-01-31] MEDS ORDERED: MAGNESIUM OXIDE 400 MG TABLET PO SCH (22:00)
== END 2023-01-31 18:15 | disposition home or self-care (01) | DRG 308 ==
LOC: ER 10:12 → MED 16:18 → TELE 16:23 → MED 01-20 20:08
PROVIDERS: ADMIT Nurse Practitioner Acute Care; ATTEND Nurse Practitioner Acute Care
PROC: 30233N1 Transfusion of Nonautologous Red Blood Cells into Peripheral Vein, Percutaneous Approach (ICD-10-PCS; 2023-01-19)
PROC: 0QS606Z Reposition Right Upper Femur with Intramedullary Internal Fixation Device, Open Approach (ICD-10-PCS; principal; 2023-01-23)
DX: S72.141A Displaced intertrochanteric fracture of right femur, initial encounter for closed fracture (principal); G92.9 Unspecified toxic encephalopathy; K85.90 Acute pancreatitis without necrosis or infection, unspecified; D69.6 Thrombocytopenia, unspecified; E87.20 Acidosis, unspecified; E87.1 Hypo-osmolality and hyponatremia; D63.8 Anemia in other chronic diseases classified elsewhere; E86.1 Hypovolemia; M62.82 Rhabdomyolysis; Z20.822 Contact with and (suspected) exposure to COVID-19; D50.9 Iron deficiency anemia, unspecified; F41.9 Anxiety disorder, unspecified; E87.6 Hypokalemia; E83.42 Hypomagnesemia; R79.1 Abnormal coagulation profile; Z78.1 Physical restraint status; F10.139 Alcohol abuse with withdrawal, unspecified; Y90.0 Blood alcohol level of less than 20 mg/100 ml; R60.0 Localized edema; W19.XXXA Unspecified fall, initial encounter; Y92.9 Unspecified place or not applicable; Z59.00 Homelessness unspecified
CPT/HCPCS: 36415; 70450-TC; 71045-TC; 73501; 73552; 73590-TC; 73700-TC; 80048-TC; 80053-TC; 80076-TC; 81001; 82272-TC; 82550-TC; 82553; 82728-TC; 82962-TC; 83540-TC; 83690-TC; 83735-TC; 84100-TC; 84132-TC; 84439-TC; 84443-TC; 84484-TC; 85025-TC; 85027-TC; 85610-TC; 86850-TC; 87081-TC; 92526; 92611-TC; 93307-TC; 93971-TC; 97112-TC; 97116-TC; 97530-TC; A4223; A4349; A6209; A6253; A6403; C1713; C9113; C9803; G0378; G0480; J0690; J1100; J1170; J1650; J2060; J2270; J2370; J2405; J2704; J2765; J2916; J3010; J3411; J3430; J3475; J3480; J3490; J7030; J7042; J7050; J7060; J7070; P9016; P9045